=== PATIENT | female | born 1935 | race Caucasian/White ===

== ENCOUNTER 2016-10-10 16:17 | Inpatient (IN) | payer MEDICARE, OTHER ==
[2016-10-10] MEDS ORDERED: Sodium Chloride 0.9% 10 ML Syringe FLUSH PRN (16:55)
[2016-10-10] MEDS ORDERED: Dexamethasone 4 MG/ML SDV IVPUSH ONE (16:56)
[2016-10-10] MEDS ORDERED: Sodium Chloride 0.9% 1,000 ML IV ONE (16:57)
--- NOTE | 2016-10-10 18:37 | EDM.PDOC ---
Scribed by Angela Campuzano 10/10/16 [id number] for Inderjit Queen MD ED HPI GENERAL MEDICAL PROBLEM - General Chief Complaint: Abdominal Pain Stated Complaint: SICK/DIZZY/UNABLE TO EAT [phone] Time Seen by Provider: 10/10/16 16:42 Source of Information: Reports: Patient, RN, RN Notes Reviewed History Limitations: Reports: No Limitations - History of Present Illness INITIAL COMMENTS - FREE TEXT/NARRATIVE: Patient arrives by POV with complaint of "room spin and dizziness" with nausea x2 weeks. Patient states that is due to the nausea it would be better if she quit eating and now has generalized weakness. Admits to some recurrent frontal headaches. Denies fever, chills, nausea, vomiting, cough or palpitations. She saw Dr. Navarrete 2 days and had a head CT yesterday which had no acute changes. Location: Reports: Head Quality: Reports: Ache Severity: Severe Improves with: Reports: None Worsens with: Reports: None Associated Symptoms: Reports: No Other Symptoms - Related Data Allergies Allergy/AdvReac Type Severity Reaction Status Date / Time Penicillins Allergy Cannot Verified 05/19/15 11:49 Remember Home Meds: Home Meds Aspirin [Halfprin] 81 mg PO DAILY 05/19/15 [History] Celecoxib [Celecoxib] 200 mg PO DAILY 05/19/15 [History] Ezetimibe [Zetia] 10 mg PO DAILY 05/19/15 [History] Hydrochlorothiazide 25 mg PO DAILY 05/19/15 [History] Levothyroxine [Synthroid] 1 tab PO DAILY 05/19/15 [History] Memantine HCl [Namenda] 5 mg PO QAM 05/19/15 [History] Oxybutynin 5 mg PO DAILY 05/19/15 [History] Propranolol [Inderal LA] 60 mg PO BID 05/19/15 [History] Rosuvastatin [Crestor] 10 mg PO DAILY 05/19/15 [History] Clopidogrel [Plavix] 75 mg PO DAILY 10/10/16 [History] DULoxetine [Cymbalta] 30 mg PO DAILY 10/10/16 [History] Memantine HCl [Namenda] 10 mg PO BEDTIME 10/10/16 [History] Prednisone [IJD: predniSONE] 60 mg PO DAILY 10/10/16 [History] Past Medical History Cardiovascular History: Reports: CAD, High Cholesterol, Hypertension Genitourinary History: Reports: UTI, Recurrent Neurological History: Reports: TIA Social & Family History - Family History Family Medical History: Noncontributory - Tobacco Use Smoking Status *Q: Never Smoker Second Hand Smoke Exposure: No - Recreational Drug Use Recreational Drug Use: No ED ROS GENERAL - Review of Systems Review Of Systems: ROS reveals no pertinent complaints other than HPI. ED EXAM, GI/ABD - Physical Exam Exam: See Below Exam Limited By: No Limitations General Appearance: Alert, WD/WN, No Apparent Distress Eyes: Bilateral: EOMI, Nystagmus (bilateral lateral gaze nystagmus.) Ears: Normal External Exam, Normal Canal, Hearing Grossly Normal, Normal TMs Nose: Normal Inspection, Normal Mucosa, No Blood Throat/Mouth: Normal Lips, Normal Oropharynx (moist), Other (dry oral membranes) Head: Atraumatic, Normocephalic Neck: Normal Inspection, Supple, Non-Tender, Full Range of Motion Respiratory/Chest: No Respiratory Distress Cardiovascular: Normal Peripheral Pulses, Regular Rate, Rhythm, No Edema, No Gallop, No JVD, No Murmur, No Rub GI/Abdominal Exam: Normal Bowel Sounds, Soft, Non-Tender, No Organomegaly, No Distention, No Abnormal Bruit, Pelvis Stable (Female) Exam: Deferred Rectal (Female) Exam: Deferred Back Exam: Normal Inspection Extremities: Normal Inspection, Normal Range of Motion, Non-Tender, Normal Capillary Refill, No Pedal Edema Neurological: Alert, No Motor/Sensory Deficits Psychiatric: Normal Affect, Normal Mood Skin Exam: Warm, Dry, Intact, Normal Color, No Rash EKG INTERPRETATION EKG Date: 10/10/16 Time: 17:05 Rhythm: Other (sinus bradycardia) Rate (Beats/Min): 58 [place]: Normal P-Wave: Present QRS: Normal ST-T: Normal QT: Normal Course - Vital Signs Last Recorded V/S: Last Vital Signs Temp 36.1 C 10/10/16 16:34 Pulse 53 L 10/10/16 18:08 Resp 16 10/10/16 16:34 BP 100/80 10/10/16 18:08 Pulse Ox 99 10/10/16 18:08 Orthostatic Blood Pressure [ 81/52 Standing] Orthostatic Blood Pressure [ 103/49 Sitting] Orthostatic Blood Pressure [ 112/48 Supine] - Orders/Labs/Meds Orders: Active Orders 24 hr Category Date Time Status EKG 12 Lead [EKG Documentation Completion] [RC] STAT Care 10/10/16 16:55 Active Orthostatic Vital Signs [RC] ASDIRECTED Care 10/10/16 16:56 Active Peripheral IV Care [RC] . DIRECTED Care 10/10/16 16:56 Active DRUG SCREEN URINE BIORAD [URCHEM] Stat Lab 10/10/16 18:25 Ordered UA W/MICROSCOPIC [URIN] Stat Lab 10/10/16 18:25 Ordered Sodium Chloride 0.9% [Normal Saline] 1,000 ml Med 10/10/16 16:57 Active IV .BOLUS Sodium Chloride 0.9% [Saline Flush] Med 10/10/16 16:55 Active 10 ml FLUSH ASDIRECTED PRN Peripheral IV Insertion Adult [OM.PC] Stat Oth 10/10/16 16:55 Ordered Medication Orders Sodium Chloride (Normal Saline) 1,000 mls @ 250 mls/hr IV .BOLUS ONE Stop: 10/10/16 20:56 Last Admin: 10/10/16 17:14 Dose: 250 mls/hr Sodium Chloride (Saline Flush) 10 ml FLUSH ASDIRECTED PRN PRN Reason: Keep Vein Open Last Admin: 10/10/16 17:12 Dose: 10 ml Labs: Laboratory Tests 10/10/16 10/10/16 10/10/16 Range/Units 17:13 17:13 17:13 WBC 9.0 (5.0-10.0) 10^3/uL RBC 3.96 L (4.2-5.4) 10^6/uL Hgb 11.7 L (12.0-16.0) g/dL Hct 33.6 L (37.0-47.0) % MCV 84.8 (80-100) fL MCH 29.5 (27.0-34.0) pg MCHC 34.8 (33.0-35.0) g/dL Plt Count 242 (150-450) 10^3/uL Neut % (Auto) 91.4 H (42.2-75.2) % Lymph % (Auto) 6.3 L (20.5-50.1) % [place] % (Auto) 2.1 (2-8) % Eos % (Auto) 0.1 L (1.0-3.0) % Baso % (Auto) 0.1 (0.0-1.0) % Sodium 121 L (135-145) mmol/L Potassium 4.4 (3.6-5.0) mmol/L Chloride 87 L (101-111) mmol/L Carbon Dioxide 23.0 (21.0-31.0) mmol/L Anion Gap 15.4 BUN 20 H (7-18) mg/dL Creatinine 1.0 (0.6-1.3) mg/dL Est Cr Clr Drug Dosing 30.62 mL/min Estimated GFR (MDRD) 53 BUN/Creatinine Ratio 20.00 Glucose 152 H (74-105) mg/dL Calcium 9.2 (8.4-10.2) mg/dl Magnesium 1.8 (1.8-2.5) mg/dL Total Bilirubin 0.9 (0.2-1.0) mg/dL AST 23 (10-42) IU/L ALT 21 (10-60) IU/L Alkaline Phosphatase 76 (42-121) IU/L Total Protein 7.0 (6.7-8.2) g/dl Albumin 3.4 (3.2-5.5) g/dl Globulin 3.6 Albumin/Globulin Ratio 0.94 TSH, Ultra Sensitive 0.56 (0.35-7.0) uIu/mL Meds: Medications Generic Name Dose Route Start Last Admin Trade Name Freq PRN Reason Stop Dose Admin Sodium Chloride 1,000 mls @ 250 mls/hr 10/10/16 16:57 10/10/16 17:14 Normal Saline IV 10/10/16 20:56 250 mls/hr .BOLUS ONE Administration Sodium Chloride 10 ml 10/10/16 16:55 10/10/16 17:12 Saline Flush FLUSH 10 ml ASDIRECTED PRN Administration Keep Vein Open Discontinued Medications Generic Name Dose Route Start Last Admin Trade Name Freq PRN Reason Stop Dose Admin Dexamethasone 20 mg 10/10/16 16:56 10/10/16 17:14 Dexamethasone IVPUSH 10/10/16 16:57 20 mg ONETIME ONE Administration Diazepam 5 mg 10/10/16 16:56 10/10/16 17:14 Valium IVPUSH 10/10/16 16:57 5 mg ONETIME ONE Administration - Radiology Interpretation Free Text/Narrative:: Reviewed CT HEAD report from 10/09/16. Departure - Departure Time of Disposition: 18:07 (Admit Dr. Ramos/Cameron) Disposition: Refer to Observation Condition: Fair Clinical Impression: Vertigo, Hyponatremia, Dehydration, Orthostatic hypotension - Discharge Information Forms: ED Department Discharge - My Orders Last 24 Hours: My Active Orders 10/10/16 16:55 EKG 12 Lead [EKG Documentation Completion] [RC] STAT Sodium Chloride 0.9% [Saline Flush] 10 ml FLUSH ASDIRECTED PRN Peripheral IV Insertion Adult [OM.PC] Stat 10/10/16 16:56 Orthostatic Vital Signs [RC] ASDIRECTED Peripheral IV Care [RC] . DIRECTED 10/10/16 16:57 Sodium Chloride 0.9% [Normal Saline] 1,000 ml IV .BOLUS 10/10/16 18:25 DRUG SCREEN URINE BIORAD [URCHEM] Stat UA W/MICROSCOPIC [URIN] Stat - Assessment/Plan Last 24 Hours: My Active Orders 10/10/16 16:55 EKG 12 Lead [EKG Documentation Completion] [RC] STAT Sodium Chloride 0.9% [Saline Flush] 10 ml FLUSH ASDIRECTED PRN Peripheral IV Insertion Adult [OM.PC] Stat 10/10/16 16:56 Orthostatic Vital Signs [RC] ASDIRECTED Peripheral IV Care [RC] . DIRECTED 10/10/16 16:57 Sodium Chloride 0.9% [Normal Saline] 1,000 ml IV .BOLUS 10/10/16 18:25 DRUG SCREEN URINE BIORAD [URCHEM] Stat UA W/MICROSCOPIC [URIN] Stat I have read and agree with the documentation that has been completed regarding this visit. By signing this record, I attest that the documentation was completed in my physical presence and is an accurate record of the encounter.
--- NOTE | 2016-10-10 20:21 | PCM.HP ---
H&P History of Present Illness - General Date of Service: 10/10/16 Admit Problem/Dx: Patient arrives in ED complaint of "room spin and dizziness" with nausea x2 weeks. Source of Information: Patient, Family History Limitations: Reports: No Limitations - History of Present Illness Initial Comments - Free Text/Narative: This is a 81 Y/O F with past Medical history of Hypertension, Dyslipidemia, CVA , Arthritis , came to ED with complaint of "room spin and dizziness" with nausea x2 weeks. Patient states that is due to the nausea she stopped eating and now has generalized weakness. Admits to some recurrent frontal headaches. Denies fever, chills, nausea, vomiting, cough or palpitations. She saw Dr. Navarrete 2 days and had a head CT yesterday which had no acute changes and in ED she was orthostatic and also noted to have Hyponatremia ( serum sodium was 121 meq/L). She has received IV fluids and BP is better and Nausea is also much better. Pt has TMJ pain for the last 3-4 days and can not open her mouth and can not chew, eating oatmeal and also had no BM for the last 3 days. Onset of Symptoms: Reports: Gradual Duration of Symptoms: Reports: Day(s):, Getting Worse Location: Reports: Other (nausea and spinning of room) Improves with: Reports: Rest Worsens with: Reports: Eating Associated Symptoms: Reports: Nausea/Vomiting - Related Data Allergies/Adverse Reactions: Allergies Allergy/AdvReac Type Severity Reaction Status Date / Time Penicillins Allergy Cannot Verified 05/19/15 11:49 Remember Home Medications: Home Meds Aspirin [Halfprin] 81 mg PO DAILY 05/19/15 [History] Celecoxib [Celecoxib] 200 mg PO DAILY 05/19/15 [History] Ezetimibe [Zetia] 10 mg PO DAILY 05/19/15 [History] Hydrochlorothiazide 25 mg PO DAILY 05/19/15 [History] Levothyroxine [Synthroid] 1 tab PO DAILY 05/19/15 [History] Memantine HCl [Namenda] 5 mg PO QAM 05/19/15 [History] Oxybutynin 5 mg PO DAILY 05/19/15 [History] Propranolol [Inderal LA] 60 mg PO BID 05/19/15 [History] Rosuvastatin [Crestor] 10 mg PO DAILY 05/19/15 [History] Clopidogrel [Plavix] 75 mg PO DAILY 10/10/16 [History] DULoxetine [Cymbalta] 30 mg PO DAILY 10/10/16 [History] Memantine HCl [Namenda] 10 mg PO BEDTIME 10/10/16 [History] Prednisone [IJD: predniSONE] 60 mg PO DAILY 10/10/16 [History] Past Medical History HEENT History: Reports: Impaired Vision Cardiovascular History: Reports: CAD, High Cholesterol, Hypertension Genitourinary History: Reports: UTI, Recurrent Neurological History: Reports: TIA Psychiatric History: Reports: Dementia - Past Surgical History HEENT Surgical History: Reports: Cataract Surgery, Tonsillectomy Social & Family History - Family History Family Medical History: Noncontributory - Tobacco Use Smoking Status *Q: Never Smoker Second Hand Smoke Exposure: No - Caffeine Use Caffeine Use: Reports: None - Recreational Drug Use Recreational Drug Use: No H&P Review of Systems - Review of Systems: Review Of Systems: See Below General: Reports: Weakness. Denies: Fever, Chills, Night Sweats, Diaphoresis, Weight Loss HEENT: Reports: Headaches, Vertigo. Denies: Dysphasia, Sinus Congestion, Sore Throat, Visual Changes Pulmonary: Denies: Shortness of Breath, Wheezing, Cough, Sputum, Hemoptysis Cardiovascular: Denies: Chest Pain, Dyspnea on Exertion, Edema, Lightheadedness Gastrointestinal: Reports: Nausea, Vomiting. Denies: Abdominal Pain, Diarrhea, Difficulty Swallowing Genitourinary: Denies: Dysuria, Frequency, Burning, Retention, Flank Pain Musculoskeletal: Reports: Other (B/L Jaw pain). Denies: Shoulder Pain, Leg Pain , Foot Pain, Joint Swelling, Muscle Pain Skin: Denies: Cyanosis, Jaundice, Diaphoresis, Pruritis, Erythema Psychiatric: Denies: Confusion, Agitation, Hallucinations, Suicidal Ideation Neurological: Reports: Dizziness, Headache, Weakness, Gait Disturbance Exam - Exam Exam: See Below - Vital Signs Vital Signs: Last Vital Signs Temp 36.1 C 10/10/16 16:34 Pulse 54 L 10/10/16 19:13 Resp 18 10/10/16 19:13 BP 93/49 L 10/10/16 19:13 Pulse Ox 99 10/10/16 19:13 Weight: 63.503 kg - Exam Quality Assessment: DVT Prophylaxis. No: Supplemental Oxygen, Urinary Catheter General: Alert, Oriented, Cooperative HEENT: Conjunctiva Clear, Hearing Intact, Mucosa Moist & [place], Pupils Equal, Pupils Reactive Neck: Supple, Full Range of Motion. No: Lymphadenopathy, Thyromegaly Lungs: Clear to Auscultation, Normal Respiratory Effort. No: Crackles, Rhonchi , Wheezing Cardiovascular: Regular Rate, Regular Rhythm, Normal S1, Normal S2, Systolic Murmur GI/Abdominal Exam: Normal Bowel Sounds, Soft, Non-Tender, No Organomegaly, No Distention (Female) Exam: Deferred Rectal (Female) Exam: Deferred Back Exam: Normal Inspection, Full Range of Motion Extremities: Normal Inspection. No: Joint Swelling Skin: Warm, Dry, Intact Neurological: Cranial Nerves Intact, Reflexes Equal Bilateral Neuro Extensive - Mental Status: Alert, Oriented x3, Normal Mood/Affect, Normal Cognition, Memory Intact Neuro Extensive - Motor, Sensory, Reflexes: Normal Gait, Normal Reflexes Psychiatric: Alert, Normal Affect, Normal Mood - Patient Data Result Diagrams: 10/10/16 17:13 10/11/16 06:00 *Q Meaningful Use (ADM) - VTE *Q VTE Criteria *Q: - Stroke *Q Stroke Criteria *Q: - AMI *Q AMI Criteria *Q: - Problem List (1) Temporomandibular joint (TMJ) pain SNOMED Code(s): 10870589, 059695488 ICD Code: M26.629 - ARTHRALGIA OF TEMPOROMANDIBULAR JOINT, UNSPECIFIED SIDE Status: Acute Current Visit: Yes (2) Dehydration SNOMED Code(s): 97232513 ICD Code: E86.0 - DEHYDRATION Status: Acute Current Visit: Yes (3) Orthostatic hypotension SNOMED Code(s): 37159460 ICD Code: I95.1 - ORTHOSTATIC HYPOTENSION Status: Acute Current Visit: Yes (4) Vertigo SNOMED Code(s): 730170767 ICD Code: R42 - DIZZINESS AND GIDDINESS Status: Acute Current Visit: Yes Problem List Initiated/Reviewed/Updated: Yes Orders Last 24hrs: Medication Orders Sodium Chloride (Normal Saline) 1,000 mls @ 250 mls/hr IV .BOLUS ONE Stop: 10/10/16 20:56 Last Admin: 10/10/16 17:14 Dose: 250 mls/hr Sodium Chloride (Saline Flush) 10 ml FLUSH ASDIRECTED PRN PRN Reason: Keep Vein Open Last Admin: 10/10/16 17:12 Dose: 10 ml Assessment/Plan Comment:: This is a 81 Y/O F came with Nausea, spinning of rooms , B/L Jaw pain and poor appetite also noted to have low sodium 1. Nausea : The etiology not clear but may be from Jaw pain -Will start her on IV fluids ( NS) at 100 ml/hr Start her on IV Zofran 4 mg q 6 hrs PRN 2. Orthostatic Hypotension: This is likely from Dehydration -Will continue IV fluids, hold all Anti-HTN medication -Encourage oral Intake 3. Vertigo: Pt had Head CT and no significant finding, will start her on Scheduled Meclizine 12.5 mg BID 4. B/L TMJ pain: It's new for the last 3-4 days -Will start her Percocet 5/325 q4-6 hrs Prn -Will continue Prednisone 60 mg daily -Need more Nerological evaluation and Need to see a Neurologist if the pain is due to Trigeminal Neuralgia 5. Hyponatremia: This is likely from Nausea, causing abnormal ADH release and free water uptake by Kidney -Will check urine and serum osmolality, Urine sodium and uric acid -Will continue NS at 100 ml/hr -She has acute symptom of Hyponatremia and will not need 3% saline infusion or oral salt tablet 6. GI prophylaxis: Protonix 7. DVT prophylaxis: Heparin and sequential Axel 8. Code Status: Full Code
[2016-10-10] MEDS ORDERED: Acetaminophen 325 MG Tab PO PRN (21:14)
[2016-10-10] MEDS ORDERED: Docusate Sodium 100 MG Cap PO PRN (21:14)
[2016-10-10] MEDS ORDERED: Acetaminophen/oxyCODONE 325-5 MG Tab PO PRN (21:28)
[2016-10-10] MEDS: Heparin Sodium 5,000 Units/ML Vial SUBCUT SCH (22:26)
[2016-10-10] MEDS: Sodium Chloride 0.9% 1,000 ML IV SCH (22:27)
[2016-10-10] MEDS ORDERED: Ondansetron 4 MG/2 ML SDV IV PRN (23:21)
[2016-10-11] MEDS: Rosuvastatin 10 MG Tab PO SCH ×2 (05:03→21:04)
[2016-10-11] MEDS: Heparin Sodium 5,000 Units/ML Vial SUBCUT SCH ×3 (06:25→21:05)
[2016-10-11 06:29] LABS: CHLORIDE,CL 93 mmol/L (101-111); SODIUM,NA 123 mmol/L (135-145)
[2016-10-11] MEDS: Sodium Chloride 0.9% 1,000 ML IV SCH ×2 (08:34→19:01)
[2016-10-11] MEDS: DULoxetine 30 MG Cap PO SCH (08:41)
[2016-10-11] MEDS: Meclizine 12.5 MG Tab PO SCH ×2 (08:41→21:04)
[2016-10-11] MEDS: Memantine 10 MG Tab PO SCH ×2 (08:42→21:04)
[2016-10-11] MEDS: Aspirin 81 MG Tab.EC PO SCH (08:42)
[2016-10-11] MEDS: predniSONE 20 MG Tab PO SCH (08:43)
[2016-10-11] MEDS: Clopidogrel 75 MG Tab PO SCH (08:43)
[2016-10-11] MEDS: Oxybutynin 5 MG Tab PO SCH (08:43)
[2016-10-11] MEDS: Ezetimibe 10 MG Tab PO SCH (08:44)
[2016-10-11] MEDS: Levothyroxine 50 MCG Tab PO SCH (08:44)
[2016-10-11] MEDS ORDERED: Rosuvastatin 10 MG Tab PO SCH (09:00)
--- NOTE | 2016-10-11 12:48 | PCM.PN ---
- General Info Date of Service: 10/11/16 Admission Dx/Problem (Free Text): Patient arrives in ED complaint of "room spin and dizziness" with nausea x2 weeks. she was admitted for Vertigo, and orthostatic Hypotension Subjective Update: Pt feels little better today, still has very significant dizziness and can not eat any solid food, gets B/L Jaw pain with chewing. Bubba is not improving with steroid and also Percocet. she has no pain in jaw if she does not chew, has no nausea and tolerating liquid diet, she had no BM for 3-4 days but passing gas. Functional Status: Reports: Pain Controlled, Tolerating Diet, Ambulating (onle from bed to rest room with assistance) - Review of Systems General: Reports: Weakness, Fatigue, Appetite (good but can not chew any food). Denies: Fever, Chills HEENT: Reports: Other (has B/L Jaw pain). Denies: Sinus Congestion, Sore Throat , Visual Changes Pulmonary: Denies: Shortness of Breath, Pleuritic Chest Pain, Cough, Sputum, Wheezing Cardiovascular: Reports: Lightheadedness. Denies: Chest Pain, Dyspnea on Exertion Gastrointestinal: Reports: Constipation, Flatus, Nausea. Denies: Abdominal Pain , Vomiting Genitourinary: Denies: Dysuria, Burning, Urgency, Flank Pain Musculoskeletal: Reports: Other (has B/L Jaw Pain). Denies: Neck Pain, Hand Pain, Joint Swelling Skin: Denies: Cyanosis, Jaundice, Bruising, Pruritis, Rash Neurological: Reports: Dizziness, Weakness, Gait Disturbance. Denies: Confusion Psychiatric: Denies: Confusion, Anxiety - Patient Data Vitals - Most Recent: Last Vital Signs Temp 36.6 C 10/11/16 11:11 Pulse 54 L 10/11/16 11:11 Resp 20 10/11/16 11:11 BP 104/53 L 10/11/16 07:00 Pulse Ox 96 10/11/16 11:11 Orthostatic Blood Pressure [ 116/51 Standing] Orthostatic Blood Pressure [ 105/51 Sitting] Orthostatic Blood Pressure [ 106/56 Supine] Weight - Most Recent: 63.503 kg I&O - Last 24 Hours: Intake & Output 10/10/16 10/11/16 10/11/16 22:59 06:59 14:59 Intake Total 100 800 201 Output Total 300 650 400 Balance -200 150 -199 Lab Results Last 24 Hours: Laboratory Results - last 24 hr 10/11/16 Range/Units 06:00 Sodium 123 L (135-145) mmol/L Potassium 4.2 (3.6-5.0) mmol/L Chloride 93 L (101-111) mmol/L Carbon Dioxide 22.0 (21.0-31.0) mmol/L Anion Gap 12.2 BUN 15 (7-18) mg/dL Creatinine 0.7 (0.6-1.3) mg/dL Est Cr Clr Drug Dosing 43.74 mL/min Estimated GFR (MDRD) > 60 Glucose 127 H (74-105) mg/dL Calcium 8.4 (8.4-10.2) mg/dl Med Orders - Current: Current Medications Acetaminophen (Tylenol) 650 mg PO Q4H PRN PRN Reason: Pain (mild 1-3 )/fever Aspirin (Halfprin) 81 mg PO DAILY [facility] Last Admin: 10/11/16 08:42 Dose: 81 mg Clopidogrel Bisulfate (Plavix) 75 mg PO DAILY [facility] Last Admin: 10/11/16 08:43 Dose: 75 mg Docusate Sodium (Colace) 100 mg PO DAILY PRN PRN Reason: Constipation Last Admin: 10/10/16 22:26 Dose: 100 mg Duloxetine HCl (Cymbalta) 30 mg PO DAILY [facility] Last Admin: 10/11/16 08:41 Dose: 30 mg Ezetimibe (Zetia) 10 mg PO DAILY [facility] Last Admin: 10/11/16 08:44 Dose: 10 mg Heparin Sodium (Porcine) (Heparin Sodium) 5,000 units SUBCUT Q8H [facility] Last Admin: 10/11/16 06:25 Dose: 5,000 units Sodium Chloride (Normal Saline) 1,000 mls @ 100 mls/hr IV ASDIRECTED [facility] Last Admin: 10/11/16 08:34 Dose: 100 mls/hr Levothyroxine Sodium (Synthroid) 50 mcg PO DAILY [facility] Last Admin: 10/11/16 08:44 Dose: 50 mcg Meclizine HCl (Antivert) 12.5 mg PO BID [facility] Last Admin: 10/11/16 08:41 Dose: 12.5 mg Memantine (Namenda) 5 mg PO QAM [facility] Last Admin: 10/11/16 08:42 Dose: 5 mg Memantine (Namenda) 10 mg PO BEDTIME [facility] Ondansetron HCl (Zofran) 4 mg IV Q6HR PRN PRN Reason: Nausea Oxybutynin Chloride (Oxybutynin) 5 mg PO DAILY [facility] Last Admin: 10/11/16 08:43 Dose: 5 mg Oxycodone/Acetaminophen (Percocet 325-5 Mg) 1 tab PO Q6H PRN PRN Reason: Pain Prednisone (Prednisone) 60 mg PO DAILY [facility] Last Admin: 10/11/16 08:43 Dose: 60 mg Rosuvastatin Calcium (Crestor) 10 mg PO BEDTIME [facility] Last Admin: 10/11/16 05:03 Dose: Not Given Sodium Chloride (Saline Flush) 10 ml FLUSH ASDIRECTED PRN PRN Reason: Keep Vein Open Last Admin: 10/10/16 17:12 Dose: 10 ml Discontinued Medications Dexamethasone (Dexamethasone) 20 mg IVPUSH ONETIME ONE Stop: 10/10/16 16:57 Last Admin: 10/10/16 17:14 Dose: 20 mg Diazepam (Valium) 5 mg IVPUSH ONETIME ONE Stop: 10/10/16 16:57 Last Admin: 10/10/16 17:14 Dose: 5 mg Sodium Chloride (Normal Saline) 1,000 mls @ 250 mls/hr IV .BOLUS ONE Stop: 10/10/16 20:56 Last Admin: 10/10/16 17:14 Dose: 250 mls/hr Rosuvastatin Calcium (Crestor) 10 mg PO DAILY [facility] - Exam Quality Assessment: DVT Prophylaxis. No: Supplemental Oxygen, Urine Catheter General: Alert, Oriented, Cooperative, No Acute Distress HEENT: Pupils Equal, Pupils Reactive, EOMI, Mucous Membr. Moist/[place] Neck: Supple. No: Lymphadenopathy, JVD Lungs: Clear to Auscultation, Normal Respiratory Effort. No: Crackles, Wheezing Cardiovascular: Regular Rate, Regular Rhythm, Murmurs GI/Abdominal Exam: Normal Bowel Sounds, Soft, Non-Tender, No Organomegaly, No Distention, No Mass. No: Guarding, Rebound (Female) Exam: Deferred Back Exam: Normal Inspection, Full Range of Motion Extremities: Normal Inspection, Normal Range of Motion, Non-Tender, No Pedal Edema Skin: Warm, Dry, Intact Neurological: No New Focal Deficit Psy/Mental Status: Alert, Normal Affect, Normal Mood - Problem List & Annotations (1) Temporomandibular joint (TMJ) pain SNOMED Code(s): 33805173, 091321488 Code(s): M26.629 - ARTHRALGIA OF TEMPOROMANDIBULAR JOINT, UNSPECIFIED SIDE Status: Acute Current Visit: Yes (2) Dehydration SNOMED Code(s): 19606332 Code(s): E86.0 - DEHYDRATION Status: Acute Current Visit: Yes (3) Orthostatic hypotension SNOMED Code(s): 59178219 Code(s): I95.1 - ORTHOSTATIC HYPOTENSION Status: Acute Current Visit: Yes (4) Vertigo SNOMED Code(s): 577444837 Code(s): R42 - DIZZINESS AND GIDDINESS Status: Acute Current Visit: Yes - Problem List Review Problem List Initiated/Reviewed/Updated: Yes - My Orders Last 24 Hours: My Active Orders 10/10/16 21:09 Patient Status [ADT] Routine Vital Signs [RC] 23,03,07,11,15,19 10/10/16 21:14 Ambulate [RC] ASDIRECTED Pulse Oximetry [RC] PRN Up With Assistance [RC] ASDIRECTED Up to Chair [RC] ASDIRECTED Acetaminophen [Tylenol] 650 mg PO Q4H PRN Docusate Sodium [Colace] 100 mg PO DAILY PRN DVT/VTE Prophylaxis Reflex [OM.PC] Routine Resuscitation Status Routine 10/10/16 21:15 Antiembolic Devices [RC] .Routine Oxygen Therapy [RC] PRN VTE/DVT Education [RC] PER UNIT ROUTINE Heparin Sodium 5,000 units SUBCUT Q8H 10/10/16 21:28 Acetaminophen/oxyCODONE [Percocet 325-5 MG] 1 tab PO Q6H PRN 10/10/16 21:30 Sodium Chloride 0.9% [Normal Saline] 1,000 ml IV ASDIRECTED 10/10/16 23:00 Rosuvastatin [Crestor] 10 mg PO BEDTIME 10/10/16 23:21 Ondansetron [Zofran] 4 mg IV Q6HR PRN 10/10/16 Dinner Clear Liquid Diet [DIET] 10/11/16 09:00 Aspirin [Halfprin] 81 mg PO DAILY Clopidogrel [Plavix] 75 mg PO DAILY DULoxetine [Cymbalta] 30 mg PO DAILY Ezetimibe [Zetia] 10 mg PO DAILY Levothyroxine [Synthroid] 50 mcg PO DAILY Meclizine [Antivert] 12.5 mg PO BID Memantine [Namenda] 5 mg PO QAM Oxybutynin 5 mg PO DAILY predniSONE 60 mg PO DAILY 10/11/16 21:00 Memantine [Namenda] 10 mg PO BEDTIME - Plan Plan:: This is a 81 Y/O F came with Nausea, spinning of rooms , B/L Jaw pain and poor appetite also noted to have low sodium 1. Nausea : The etiology not clear but may be from Jaw pain -Will continue her on IV fluids ( NS) at 100 ml/hr -Continue on IV Zofran 4 mg q 6 hrs PRN 2. Orthostatic Hypotension: This is likely from Dehydration -Will continue IV fluids, hold all Anti-HTN medication -Encourage oral Intake -It's now Improved -Will start Midodrine 2.5 mg BID 3. Vertigo: Pt had Head CT and no significant finding, will continue her on Scheduled Meclizine 12.5 mg BID 4. B/L TMJ pain: It's new for the last 3-4 days -Will continue her Percocet on 5/325 q4-6 hrs Prn -Will continue Prednisone 60 mg daily -Need Nerological evaluation and Need to see a Neurologist if the pain is due to Trigeminal Neuralgia -Will control nausea and also dizziness and once improved can go home but need evaluation by Neurologist 5. Hyponatremia: This is likely from Nausea, and Pain causing abnormal ADH release and free water uptake by Kidney -Will check urine and serum osmolality, Urine sodium and uric acid -Will continue NS at 100 ml/hr and sodium is improving slowly -She has acute symptom of Hyponatremia and will not need 3% saline infusion or oral salt tablet 6. Nutrition: Pt has poor oral intake of solid food, will continue clear liquid and add ensure daily with meal 6. GI prophylaxis: Protonix 7. DVT prophylaxis: Heparin and sequential Axel 8. Code Status: Full Code
[2016-10-11] MEDS: Midodrine 2.5 MG Tab PO SCH (17:24)
[2016-10-12] MEDS: Sodium Chloride 0.9% 1,000 ML IV SCH ×2 (04:54→15:03)
[2016-10-12] MEDS: Heparin Sodium 5,000 Units/ML Vial SUBCUT SCH ×3 (04:59→21:07)
[2016-10-12 06:31] LABS: CHLORIDE,CL 100 mmol/L (101-111); SODIUM,NA 131 mmol/L (135-145)
[2016-10-12] MEDS: Midodrine 2.5 MG Tab PO SCH ×2 (08:48→17:16)
[2016-10-12] MEDS: Meclizine 12.5 MG Tab PO SCH ×2 (08:48→21:06)
[2016-10-12] MEDS: DULoxetine 30 MG Cap PO SCH (08:49)
[2016-10-12] MEDS: Aspirin 81 MG Tab.EC PO SCH (08:49)
[2016-10-12] MEDS: Memantine 10 MG Tab PO SCH ×2 (08:49→21:06)
[2016-10-12] MEDS: Clopidogrel 75 MG Tab PO SCH (08:50)
[2016-10-12] MEDS: Oxybutynin 5 MG Tab PO SCH (08:50)
[2016-10-12] MEDS: Ezetimibe 10 MG Tab PO SCH (08:51)
[2016-10-12] MEDS: predniSONE 20 MG Tab PO SCH (08:51)
[2016-10-12] MEDS: Levothyroxine 50 MCG Tab PO SCH (08:51)
--- NOTE | 2016-10-12 12:06 | PCM.PN ---
- General Info Date of Service: 10/12/16 Admission Dx/Problem (Free Text): Patient came to ED with complaint of "room spin and dizziness" with nausea x2 weeks. she is admitted for Vertigo, and orthostatic Hypotension Subjective Update: Pt feels little better today, still has dizziness but better and can not eat any solid food, gets B/L Jaw pain with chewing. Pain is better with steroid and Percocet. she has no pain in jaw if she does not chew, has no nausea and tolerating liquid diet, advanced diet to mechanical soft , she little BM and she is on stool softner Functional Status: Reports: Tolerating Diet, Urinating, Other (will help her to walk in the hallway ) - Review of Systems General: Reports: Weakness, Appetite (Good ( advance to mechanical soft)). Denies: Fever, Chills HEENT: Denies: Eye Pain, Headaches, Post Nasal Drip, Sinus Congestion, Sore Throat Pulmonary: Denies: Shortness of Breath, Cough, Sputum, Wheezing Cardiovascular: Reports: Lightheadedness (with upright position). Denies: Chest Pain, Dyspnea on Exertion Gastrointestinal: Denies: Abdominal Pain, Diarrhea, Melena, Nausea, Vomiting Genitourinary: Denies: Dysuria, Frequency, Burning, Urgency, Flank Pain Musculoskeletal: Denies: Shoulder Pain, Back Pain, Leg Pain, Joint Swelling Skin: Denies: Cyanosis, Bruising, Pruritis, Rash Neurological: Reports: Dizziness, Weakness, Gait Disturbance Psychiatric: Denies: Confusion, Anxiety - Patient Data Vitals - Most Recent: Last Vital Signs Temp 36.6 C 10/12/16 11:00 Pulse 57 L 10/12/16 11:00 Resp 20 10/12/16 11:00 BP 102/48 L 10/12/16 11:00 Pulse Ox 98 10/12/16 11:00 Orthostatic Blood Pressure [ 116/48 Standing] Orthostatic Blood Pressure [ 106/48 Sitting] Orthostatic Blood Pressure [ 104/41 Supine] Weight - Most Recent: 63.503 kg I&O - Last 24 Hours: Intake & Output 10/11/16 10/12/16 10/12/16 22:59 06:59 14:59 Intake Total 1722 747 560 Output Total 700 700 400 Balance 1022 47 160 Lab Results Last 24 Hours: Laboratory Results - last 24 hr 10/12/16 Range/Units 05:25 Sodium 131 L (135-145) mmol/L Potassium 3.6 (3.6-5.0) mmol/L Chloride 100 L (101-111) mmol/L Carbon Dioxide 24.0 (21.0-31.0) mmol/L Anion Gap 10.6 BUN 9 (7-18) mg/dL Creatinine 0.7 (0.6-1.3) mg/dL Est Cr Clr Drug Dosing 43.74 mL/min Estimated GFR (MDRD) > 60 Glucose 86 (74-105) mg/dL Calcium 8.3 L (8.4-10.2) mg/dl Med Orders - Current: Current Medications Acetaminophen (Tylenol) 650 mg PO Q4H PRN PRN Reason: Pain (mild 1-3 )/fever Aspirin (Halfprin) 81 mg PO DAILY [facility] Last Admin: 10/12/16 08:49 Dose: 81 mg Clopidogrel Bisulfate (Plavix) 75 mg PO DAILY [facility] Last Admin: 10/12/16 08:50 Dose: 75 mg Docusate Sodium (Colace) 100 mg PO DAILY PRN PRN Reason: Constipation Last Admin: 10/10/16 22:26 Dose: 100 mg Duloxetine HCl (Cymbalta) 30 mg PO DAILY [facility] Last Admin: 10/12/16 08:49 Dose: 30 mg Ezetimibe (Zetia) 10 mg PO DAILY [facility] Last Admin: 10/12/16 08:51 Dose: 10 mg Heparin Sodium (Porcine) (Heparin Sodium) 5,000 units SUBCUT Q8H [facility] Last Admin: 10/12/16 04:59 Dose: 5,000 units Sodium Chloride (Normal Saline) 1,000 mls @ 100 mls/hr IV ASDIRECTED [facility] Last Admin: 10/12/16 04:54 Dose: 100 mls/hr Levothyroxine Sodium (Synthroid) 50 mcg PO DAILY [facility] Last Admin: 10/12/16 08:51 Dose: 50 mcg Meclizine HCl (Antivert) 12.5 mg PO BID [facility] Last Admin: 10/12/16 08:48 Dose: 12.5 mg Memantine (Namenda) 5 mg PO QAM [facility] Last Admin: 10/12/16 08:49 Dose: 5 mg Memantine (Namenda) 10 mg PO BEDTIME [facility] Last Admin: 10/11/16 21:04 Dose: 10 mg Midodrine (Midodrine) 2.5 mg PO BID@0800,1700 [facility] Last Admin: 10/12/16 08:48 Dose: 2.5 mg Ondansetron HCl (Zofran) 4 mg IV Q6HR PRN PRN Reason: Nausea Oxybutynin Chloride (Oxybutynin) 5 mg PO DAILY [facility] Last Admin: 10/12/16 08:50 Dose: 5 mg Oxycodone/Acetaminophen (Percocet 325-5 Mg) 1 tab PO Q6H PRN PRN Reason: Pain Prednisone (Prednisone) 60 mg PO DAILY [facility] Last Admin: 10/12/16 08:51 Dose: 60 mg Rosuvastatin Calcium (Crestor) 10 mg PO BEDTIME [facility] Last Admin: 10/11/16 21:04 Dose: 10 mg Sodium Chloride (Saline Flush) 10 ml FLUSH ASDIRECTED PRN PRN Reason: Keep Vein Open Last Admin: 10/10/16 17:12 Dose: 10 ml Discontinued Medications Dexamethasone (Dexamethasone) 20 mg IVPUSH ONETIME ONE Stop: 10/10/16 16:57 Last Admin: 10/10/16 17:14 Dose: 20 mg Diazepam (Valium) 5 mg IVPUSH ONETIME ONE Stop: 10/10/16 16:57 Last Admin: 10/10/16 17:14 Dose: 5 mg Sodium Chloride (Normal Saline) 1,000 mls @ 250 mls/hr IV .BOLUS ONE Stop: 10/10/16 20:56 Last Admin: 10/10/16 17:14 Dose: 250 mls/hr Rosuvastatin Calcium (Crestor) 10 mg PO DAILY [facility] Senna/Docusate Sodium (Senna Plus) 1 tab PO ONETIME ONE Stop: 10/11/16 12:48 Last Admin: 10/11/16 13:02 Dose: 1 tab - Exam Quality Assessment: DVT Prophylaxis. No: Supplemental Oxygen General: Alert, Oriented, Cooperative, No Acute Distress HEENT: Pupils Equal, EOMI, Mucous Membr. Moist/[place] Neck: Supple. No: No Thyromegaly, Lymphadenopathy Lungs: Clear to Auscultation, Normal Respiratory Effort. No: Crackles, Wheezing Cardiovascular: Regular Rate, Regular Rhythm, Murmurs GI/Abdominal Exam: Normal Bowel Sounds, Non-Tender, No Distention, Rigid. No: Guarding, Rebound (Female) Exam: Deferred Back Exam: Normal Inspection Extremities: Normal Inspection, Normal Range of Motion, No Pedal Edema Skin: Warm, Dry, Intact Neurological: No New Focal Deficit, Other (has B/L Jaw pain and can not open her mouth wide) Psy/Mental Status: Alert, Normal Affect, Normal Mood - Problem List & Annotations (1) Temporomandibular joint (TMJ) pain SNOMED Code(s): 46976642, 691072901 Code(s): M26.629 - ARTHRALGIA OF TEMPOROMANDIBULAR JOINT, UNSPECIFIED SIDE Status: Acute Current Visit: Yes (2) Dehydration SNOMED Code(s): 19417009 Code(s): E86.0 - DEHYDRATION Status: Acute Current Visit: Yes (3) Orthostatic hypotension SNOMED Code(s): 78734525 Code(s): I95.1 - ORTHOSTATIC HYPOTENSION Status: Acute Current Visit: Yes (4) Vertigo SNOMED Code(s): 173970331 Code(s): R42 - DIZZINESS AND GIDDINESS Status: Acute Current Visit: Yes (5) Weakness generalized SNOMED Code(s): 62211134 Code(s): R53.1 - WEAKNESS Status: Acute Current Visit: Yes - Problem List Review Problem List Initiated/Reviewed/Updated: Yes - My Orders Last 24 Hours: My Active Orders 10/11/16 12:48 Supplement (Dietary) [Dietary Supplements] [RC] DAILY 10/11/16 14:09 Orthostatic Vital Signs [RC] Q12HR 10/11/16 17:00 Midodrine 2.5 mg PO BID@0800,1700 10/11/16 21:00 Memantine [Namenda] 10 mg PO BEDTIME 10/12/16 Lunch Mechanical Soft Diet [DIET] - Plan Plan:: This is a 81 Y/O F came with Nausea, spinning of rooms , B/L Jaw pain and poor appetite also noted to have low sodium 1. Nausea : The etiology not clear but may be from Jaw pain -Will stop IV fluids ( NS) , she is now tolerating Mechanical soft diet -Continue on IV Zofran 4 mg q 6 hrs PRN 2. Orthostatic Hypotension: This is likely from Dehydration -Will continue IV fluids, hold all Anti-HTN medication -Encourage oral Intake -It's now Improved -Will continue Midodrine 2.5 mg BID 3. Vertigo: Pt had Head CT and no significant finding, will continue her on Meclizine 12.5 mg BID 4. B/L TMJ pain: It's new for the last 3-4 days -Will continue her Percocet on 5/325 q4-6 hrs Prn -Will continue Prednisone 60 mg daily -Need Nerological evaluation and Need to see a Neurologist if the pain is due to Trigeminal Neuralgia -Will control nausea and also dizziness and once improved can go home but need evaluation by Neurologist 5. Hyponatremia: This is likely from Nausea, and Pain causing abnormal ADH release and free water uptake by Kidney -Will continue NS at 100 ml/hr and sodium is improving slowly -She has no acute symptom of Hyponatremia and will not need 3% saline infusion or oral salt tablet 6. Nutrition: Pt has poor oral intake of solid food, will start her on mechanical soft diet and continue ensure daily with meal 7. Weakness: pt is feeling too weak and need evalution before discharge to home. -I have placed the consult to PT/OT for evaluation before discharge 8. GI prophylaxis: Protonix 9. DVT prophylaxis: Heparin and sequential Axel 10. Code Status: Full Code
[2016-10-12] MEDS: Rosuvastatin 10 MG Tab PO SCH (21:06)
[2016-10-13] MEDS: Heparin Sodium 5,000 Units/ML Vial SUBCUT SCH ×3 (05:12→20:54)
[2016-10-13 06:57] LABS: CHLORIDE,CL 102 mmol/L (101-111); SODIUM,NA 134 mmol/L (135-145)
[2016-10-13] MEDS: DULoxetine 30 MG Cap PO SCH (09:16)
[2016-10-13] MEDS: Oxybutynin 5 MG Tab PO SCH (09:16)
[2016-10-13] MEDS: Midodrine 2.5 MG Tab PO SCH ×2 (09:16→17:57)
[2016-10-13] MEDS: predniSONE 20 MG Tab PO SCH (09:16)
[2016-10-13] MEDS: Clopidogrel 75 MG Tab PO SCH (09:17)
[2016-10-13] MEDS: Ezetimibe 10 MG Tab PO SCH (09:17)
[2016-10-13] MEDS: Memantine 10 MG Tab PO SCH ×2 (09:17→20:54)
[2016-10-13] MEDS: Levothyroxine 50 MCG Tab PO SCH (09:17)
[2016-10-13] MEDS: Meclizine 12.5 MG Tab PO SCH ×2 (09:18→20:54)
[2016-10-13] MEDS: Aspirin 81 MG Tab.EC PO SCH (09:18)
[2016-10-13] MEDS: Rosuvastatin 10 MG Tab PO SCH (20:54)
[2016-10-14] MEDS: Heparin Sodium 5,000 Units/ML Vial SUBCUT SCH (05:39)
--- NOTE | 2016-10-14 05:42 | EKG ---
10/10/2016 - UCHE KOENIG - This 12-lead EKG shows sinus bradycardia with a ventricular rate of 58. Normal axis and intervals. No acute ST-segment T-wave changes. There is baseline artifact in the limb leads. [facility] /[id number]
--- NOTE | 2016-10-14 08:21 | PN ---
DATE: 10/13/2016 SUBJECTIVE: Ms. العراقي is an 81-year-old lady, who was admitted late last week with the complaint of dizziness and nausea for 2 weeks. Complaining also of generalized weakness. She had not been able to eat. Apparently, this all goes back to some issues that she has been having, possibly related to bilateral TMJ joints. She had seen Dr. Navarrete, who started her on high-dose steroids. She was having more and more trouble getting the jaw open. She had not been eating and drinking and when she arrived in the Emergency Department, she was found to be hypotensive and orthostatic. Sodium was low at 121. She appears to have done well over the weekend. A review of her clinical data shows that she actually has been tolerating her diet and at times has eaten almost all of her meals. I questioned her further about whether she had been referred to anyone for this bilateral TMJ pain, she has not seen ENT nor has she discussed it with her dentist. We are going to follow up on this tomorrow. On exam, she is seated comfortably in her recliner. She voices no new concerns or complaints. She does state that she is feeling better. Her was present in the room. She voiced interest in possibly going to swing bed to work with physical and occupational therapy as she feels rather unsteady and weak. We will take this up with the swing bed coordinator tomorrow. Repeat lab work this morning included a basic panel. Sodium is now 134, potassium 3.7, and renal function is preserved. Blood sugars have been unremarkable. OBJECTIVE: Vital Signs: On exam, orthostatic blood pressures have been taken and were relatively stable in the range of 130/60, heart rate did not increase with change of position. Later in the day, blood pressures are 112/53 and 116/64. Oxygen saturation is high 90s on room air and she is afebrile. HEENT: Unremarkable. She actually was speaking quite well, moving her jaw, opening her mouth. She was not in any distress nor was her speech limited by limited movement of the jaw. Chest: Showed clear bilateral breath sounds. Heart: Showed regular rate and rhythm. Abdomen: Benign. Extremities: The calves were soft and nontender. ASSESSMENT AND PLAN: We will continue the present management. She currently is on meclizine for the dizziness as well as midodrine for blood pressure support. She is on 60 mg daily of prednisone. We will speak to Physical and Occupational Therapy in the morning. They did do an evaluation on her following admission and we will see if they think that she possibly could benefit from admission to swing bed. No other changes are made in her care today. [facility] /[id number] MTDD
[2016-10-14] MEDS: Clopidogrel 75 MG Tab PO SCH (09:30)
[2016-10-14] MEDS: DULoxetine 30 MG Cap PO SCH (09:31)
[2016-10-14] MEDS: Midodrine 2.5 MG Tab PO SCH ×2 (09:31→17:50)
[2016-10-14] MEDS: Oxybutynin 5 MG Tab PO SCH (09:31)
[2016-10-14] MEDS: Meclizine 12.5 MG Tab PO SCH (09:31)
[2016-10-14] MEDS: Levothyroxine 50 MCG Tab PO SCH (09:31)
[2016-10-14] MEDS: Ezetimibe 10 MG Tab PO SCH (09:31)
[2016-10-14] MEDS: predniSONE 20 MG Tab PO SCH (09:32)
[2016-10-14] MEDS: Memantine 10 MG Tab PO SCH (09:32)
[2016-10-14] MEDS: Aspirin 81 MG Tab.EC PO SCH (09:32)
[2016-10-14] MEDS ORDERED: Heparin Sodium 5,000 Units/ML Vial SUBCUT SCH (14:00)
[2016-10-14 18:29] VITALS: BP 148/88
--- NOTE | 2016-10-21 01:56 | DISCH ---
DISCHARGE DIAGNOSES: 1. Dizziness and nausea, resolved. 2. Hyponatremia, corrected. 3. Bilateral TMJ pain. 4. Orthostatic blood pressure, resolved. 5. Cerebrovascular disease. 6. Remainder of past medical history as dictated in the admission H and P. BRIEF HISTORY OF PRESENT ILLNESS: Mrs. العراقي is an 81-year-old lady who presented to the Emergency Department complaining of the room spinning and feeling dizzy with associated nausea for the last 2 weeks. She had not been able to eat and on presentation she was somewhat dehydrated. She also was found to have orthostatic hypotension. All of these symptoms stem from bilateral jaw/TMJ pain for which she had seen Dr. Navarrete. He had placed her on high-dose steroids. A CT scan of the head was done which had showed bilateral microvascular changes, but no other acute findings. No imaging studies have been done of the TMJ joints (MRI is preferred imaging study). In the ER, she was also found to be hyponatremic with a sodium of 121 and was admitted for further management. PERTINENT LABS AND X-RAYS: CBC on the day of admission was unremarkable. Hemoglobin and hematocrit were 11.7 and 33.6, white count and platelets were unremarkable. Chemistry showed a sodium of 121. Remainder of the electrolytes were unremarkable. BUN and creatinine were 20 and 1.0 with a GFR of 53 which improved to greater than 60 on repeat exam. Sodium was 134 at the time of discharge. Blood sugars were unremarkable. LFTs were within normal limits. TSH was normal at 0.56. Urinalysis was unremarkable. Urine toxicology was positive only for benzodiazepines. A 12-lead EKG was performed in the ER and showed a sinus bradycardia with a ventricular rate of 58. There were normal axis and intervals. No acute ST-T wave changes. HOSPITAL COURSE: She was admitted for further evaluation and management. In the Emergency Department, she had been given IV fluids, as well as 20 mg of IV dexamethasone and 5 mg of IV diazepam. These medications were given because of the possibility of bilateral TMJ pain. She continued on IV fluids. Her usual medications were continued. She was already on Plavix and aspirin, but subcutaneous heparin was added for VTE prophylaxis. She was initially started on a clear-liquid diet and advanced to a mechanical soft. She actually did quite well and improved quickly. There was consideration given to whether or not she would benefit from time in swing bed, but she was seen by Physical and Occupational Therapy, who felt that she was doing quite well and feel that she could be safely discharged home. She is ambulatory without any problems. She does have a walker at home if she needs it. Review of her clinical data showed that she was taking in adequate fluids. She was voiding and moving her bowels. She was tolerating her diet and appetite slowly improved. Vital signs remained stable and she was afebrile. PHYSICAL EXAMINATION: Vital Signs: On the day of discharge, blood pressure was 117/57, pulse 62, respiratory rate 20 and unlabored, oxygen saturation 96% on room air. She is afebrile. HEENT: Unremarkable. She is moving her mouth quite well including opening her mouth and moving the jaw without any apparent discomfort. She was talking in complete sentences. Her speech was clear. Chest: Showed clear bilateral breath sounds. Heart: Showed regular rate and rhythm. Abdomen: Benign. Extremities: Showed the calves to be soft and nontender. Neurologic: She was intact. DISCHARGE MEDICATIONS: 1. Rosuvastatin 10 mg daily. 2. Plavix 75 mg daily. 3. Cymbalta 30 mg daily. 4. Zetia 10 mg daily. 5. Celebrex 200 mg daily. 6. Aspirin EC 81 mg daily. 7. Levothyroxine daily. 8. Hydrochlorothiazide 25 mg daily. 9. Oxybutynin 5 mg daily. 10.Namenda 5 mg daily. 11.Propranolol 60 mg twice a day. 12.Namenda again 10 mg at bedtime. PLAN: She will remain on 60 mg of prednisone. We did not start a taper as she is scheduled to see Dr. Navarrete on October 16 at 11:00 a.m. We will defer to Dr. Navarrete to start a steroid taper. She should continue her usual diet as tolerated. She was no longer orthostatic, but she was instructed to change positions slowly and carefully. She was given take-home literature on dizziness/vertigo and TMJ syndrome. During the admission, we asked her if she had spoken with her dentist. She had not. We called her dentist, Dr. Diaz. We also spoke to Dr. Regan. We asked if they had any other suggestions regarding this. They agreed with the anti- inflammatory use with the steroids. They did talk about adding a low-dose short course of an NSAID. However, she is on Plavix, aspirin, and Celebrex and it would seem rather risky to add another anti-inflammatory to increase her risk of GI bleeding. Physical and Occupational Therapy did not feel she needed extra inpatient, but she certainly can follow up with them as an outpatient. The preferred imaging study to look at the TMJ joints would be an MRI, if the problem does not improve with conservative care. CONDITION AT THE TIME OF DISCHARGE: Improved and stable. CODE STATUS DURING THIS ADMISSION: Full code. She does have follow up with Dr. Navarrete as mentioned above on October 16 at 11:00 a.m. [facility] /[id number] MTDTika
== END 2016-10-14 17:10 | disposition home health service (06) | DRG 312 ==
LOC: DL.ED 16:17 → DL.MS 19:15 → UNDOADMIN 19:15 → DL.MS 21:09 → UNDODISIN 10-14 17:10
PROVIDERS: ADMIT Internal Medicine Nephrology; ATTEND Internal Medicine Nephrology
DX: I95.1 Orthostatic hypotension (principal); E87.1 Hypo-osmolality and hyponatremia; R11.0 Nausea; M26.623 Arthralgia of bilateral temporomandibular joint; E86.0 Dehydration; R42 Dizziness and giddiness; E78.00 Pure hypercholesterolemia, unspecified; R53.1 Weakness; I25.10 Atherosclerotic heart disease of native coronary artery without angina pectoris; I10 Essential (primary) hypertension; Z86.73 Personal history of transient ischemic attack (TIA), and cerebral infarction without residual deficits; F03.90 Unspecified dementia, unspecified severity, without behavioral disturbance, psychotic disturbance, mood disturbance, and anxiety; Z79.82 Long term (current) use of aspirin; Z79.02 Long term (current) use of antithrombotics/antiplatelets; Z79.899 Other long term (current) drug therapy; Z88.0 Allergy status to penicillin
CPT/HCPCS: 36415; 80053; 80305; 81001; 83735; 84443; 85025; 93005; 93010; 96361; 96374; 96375; 99284; 99285; J1100; J3360; J7030; J7050; 80048; 97162-GP; 97165-GO; A9270-GY; J1644

== ENCOUNTER 2018-08-26 21:47 | Emergency (ER) | payer MEDICARE, OTHER ==
[2018-08-26 21:57] VITALS: BP 141/78
--- NOTE | 2018-08-26 22:01 | EDM.PDOC ---
ED HPI GENERAL MEDICAL PROBLEM - General Chief Complaint: Abdominal Pain Stated Complaint: HAS A COMPAXTION? Time Seen by Provider: 08/26/18 21:57 Source of Information: Reports: Patient, Family History Limitations: Reports: No Limitations - History of Present Illness INITIAL COMMENTS - FREE TEXT/NARRATIVE: 4th time over 6 week period of constipation. usually fleets help but not this time. did see PMD Thursday but was too bust to tell him since had family gathering. not getting better feels worse tonight. not taking miralax. only eat small amounts - Related Data Allergies Allergy/AdvReac Type Severity Reaction Status Date / Time Penicillins Allergy Cannot Verified 08/26/18 21:58 Remember Home Meds: Home Meds Aspirin [Halfprin] 81 mg PO DAILY 05/19/15 [History] Celecoxib 200 mg PO DAILY 05/19/15 [History] Ezetimibe [Zetia] 10 mg PO DAILY 05/19/15 [History] Hydrochlorothiazide 25 mg PO DAILY 05/19/15 [History] Levothyroxine [Synthroid] 1 tab PO DAILY 05/19/15 [History] Memantine HCl [Namenda] 5 mg PO QAM 05/19/15 [History] Oxybutynin 5 mg PO DAILY 05/19/15 [History] Propranolol [Inderal LA] 60 mg PO BID 05/19/15 [History] Rosuvastatin [Crestor] 10 mg PO DAILY 05/19/15 [History] Clopidogrel [Plavix] 75 mg PO DAILY 10/10/16 [History] DULoxetine [Cymbalta] 30 mg PO DAILY 10/10/16 [History] Prednisone [IJD: predniSONE] 60 mg PO DAILY 10/10/16 [History] Memantine [Namenda] 10 mg PO BEDTIME tablet 10/14/16 [Rx] Past Medical History HEENT History: Reports: Impaired Vision Cardiovascular History: Reports: CAD, High Cholesterol, Hypertension Genitourinary History: Reports: UTI, Recurrent Neurological History: Reports: TIA Psychiatric History: Reports: Dementia - Past Surgical History HEENT Surgical History: Reports: Cataract Surgery, Tonsillectomy Social & Family History - Family History Family Medical History: Noncontributory - Caffeine Use Caffeine Use: Reports: None ED ROS GENERAL - Review of Systems Review Of Systems: ROS reveals no pertinent complaints other than HPI. ED EXAM, GI/ABD - Physical Exam Exam: See Below Exam Limited By: No Limitations General Appearance: Alert, WD/WN, Mild Distress, Other (discomfort) Ears: Hearing Grossly Normal Throat/Mouth: Normal Voice, No Airway Compromise Head: Atraumatic Neck: Non-Tender, Full Range of Motion Respiratory/Chest: No Respiratory Distress Cardiovascular: Regular Rate, Rhythm GI/Abdominal Exam: Soft, Non-Tender, Other (periumb discomfort, HYPER BS. ). No : Distended, Guarding, Rigid, Rebound Neurological: Alert, Oriented, Normal Cognition, Normal Gait, No Motor/Sensory Deficits Psychiatric: Normal Affect, Normal Mood Skin Exam: Warm, Dry, Normal Color Lymphatic: No Adenopathy Course - Vital Signs Last Recorded V/S: Last Vital Signs Temp 36.3 C 08/26/18 21:53 Pulse 83 08/26/18 21:53 Resp 18 08/26/18 21:53 BP 141/78 H 08/26/18 21:53 Pulse Ox 98 08/26/18 21:53 - Orders/Labs/Meds Orders: Active Orders 24 hr Category Date Time Status Enema [RC] ASDIRECTED Care 08/26/18 22:15 Active KUB [Abdomen 1V Flat] [CR] Urgent Exams 08/26/18 21:56 Taken - Re-Assessments/Exams Free Text/Narrative Re-Assessment/Exam: 08/26/18 23:42 enema till results pt wants to go home now. Departure - Departure Time of Disposition: 23:47 Disposition: Home, Self-Care 01 Condition: Good Clinical Impression: Constipation by delayed colonic transit - Discharge Information Instructions: Constipation, Adult, [id number] Forms: ED Department Discharge Additional Instructions: 1) avoid solid foods next 3 days 2) have liquids and soft foods 3) try prune juice 4) try miralax 5) follow up with family doctor - My Orders Last 24 Hours: My Active Orders 08/26/18 21:56 KUB [Abdomen 1V Flat] [CR] Urgent 08/26/18 22:15 Enema [RC] ASDIRECTED - Assessment/Plan Last 24 Hours: My Active Orders 08/26/18 21:56 KUB [Abdomen 1V Flat] [CR] Urgent 08/26/18 22:15 Enema [RC] ASDIRECTED
== END 2018-08-27 | disposition home or self-care (01) ==
LOC: DL.ED 21:47
DX: K59.01 Slow transit constipation (principal); I25.10 Atherosclerotic heart disease of native coronary artery without angina pectoris; E78.00 Pure hypercholesterolemia, unspecified; I10 Essential (primary) hypertension; Z86.73 Personal history of transient ischemic attack (TIA), and cerebral infarction without residual deficits; Z88.0 Allergy status to penicillin; Z79.82 Long term (current) use of aspirin; Z79.899 Other long term (current) drug therapy
CPT/HCPCS: 74018; 99284-25

== ENCOUNTER 2020-01-07 19:08 | Emergency (ER) | payer MEDICARE, OTHER ==
[2020-01-07 19:56] VITALS: BP 111/67; PULSE 72
--- NOTE | 2020-01-07 20:36 | CR ---
PROCEDURE INFORMATION: Exam: XR Right Forearm Exam date and time: 01/07/2020 8:09 PM Age: 84 years old Clinical indication: Pain; Lower or forearm; Right; Additional info: Pain, swelling TECHNIQUE: Imaging protocol: XR Right forearm. Views: 2 views. COMPARISON: No relevant prior studies available. FINDINGS: Bones/joints: Normal. Soft tissues: Normal. IMPRESSION: No acute findings.
--- NOTE | 2020-01-07 20:52 | EDM.PDOC ---
<Alexus Gilbert - Last Filed: 01/07/20 21:33> ED HPI GENERAL MEDICAL PROBLEM - General Chief Complaint: Lower Extremity Injury/Pain Stated Complaint: FELL HURT ARM HIT HEAD AND SLIGHTL BRUISED FACE Time Seen by Provider: 01/07/20 20:30 Source of Information: Reports: Patient, Family, RN, RN Notes Reviewed History Limitations: Reports: Other (hx dementia, unable to complete sentences due to impaired train of thought) - History of Present Illness INITIAL COMMENTS - FREE TEXT/NARRATIVE: pt brought to ED by daughter. pt lives in home with . hx of dementia with noted expressive aphasia. pt asks for daughter to answer questions. daughter states a week ago today (12/30) pt tripped over step stool in kitchen and hit her right forehead on the door frame and caught herself with her right forearm. reports deformity/swelling to right forearm with significant bruising. states the area of deformity is where she had bled quite a bit from a skin tear. pt reports pain to right forearm and upper arm. daughter states pt will forget that she injured her arm and use it without complaints, but when she remembers she hurt it,is very guarded with use. denies LOC with hitting head, denies nausea/vomiting, fever, chills, denies change in baseline cognition. daughter reports a second fall occurring 3 days ago during the night. states her dad told her that he heard a noise from the bathroom and found her on the floor, denies injury or LOC. Onset: Other Onset Date: 12/31/19 Location: Reports: Upper Extremity, Right Quality: Reports: Ache Severity: Moderate Worsens with: Reports: Movement Right Lower Arm Pain Score (Numeric/FACES): 3 - Related Data Allergies Allergy/AdvReac Type Severity Reaction Status Date / Time Penicillins Allergy Cannot Verified 01/07/20 19:51 Remember Home Meds: Home Meds Aspirin [Halfprin] 81 mg PO DAILY 05/19/15 [History] Celecoxib 200 mg PO DAILY 05/19/15 [History] Ezetimibe [Zetia] 10 mg PO DAILY 05/19/15 [History] Hydrochlorothiazide 25 mg PO DAILY 05/19/15 [History] Levothyroxine [Synthroid] 1 tab PO DAILY 05/19/15 [History] Memantine HCl [Namenda] 5 mg PO QAM 05/19/15 [History] Oxybutynin 5 mg PO DAILY 05/19/15 [History] Propranolol [Inderal LA] 60 mg PO BID 05/19/15 [History] Rosuvastatin [Crestor] 10 mg PO DAILY 05/19/15 [History] Clopidogrel [Plavix] 75 mg PO DAILY 10/10/16 [History] DULoxetine [Cymbalta] 30 mg PO DAILY 10/10/16 [History] Prednisone [IJD: predniSONE] 60 mg PO DAILY 10/10/16 [History] Memantine [Namenda] 10 mg PO BEDTIME tablet 10/14/16 [Rx] Past Medical History HEENT History: Reports: Impaired Vision Cardiovascular History: Reports: CAD, High Cholesterol, Hypertension Respiratory History: Reports: None Gastrointestinal History: Reports: None Genitourinary History: Reports: UTI, Recurrent [employer] History: Reports: None Musculoskeletal History: Reports: None Neurological History: Reports: CVA, TIA Psychiatric History: Reports: Dementia Endocrine/Metabolic History: Reports: None Hematologic History: Reports: None Immunologic History: Reports: None Oncologic (Cancer) History: Reports: None Dermatologic History: Reports: None - Past Surgical History Head Surgeries/Procedures: Reports: None HEENT Surgical History: Reports: Cataract Surgery, Tonsillectomy Social & Family History - Family History Family Medical History: Noncontributory - Tobacco Use Tobacco Use Status *Q: Never Tobacco User - Caffeine Use Caffeine Use: Reports: None - Recreational Drug Use Recreational Drug Use: No Review of Systems - Review of Systems Review Of Systems: See Below Constitutional: Reports: No Symptoms Eyes: Reports: No Symptoms Ears: Reports: No Symptoms Nose: Reports: No Symptoms Mouth/Throat: Reports: No Symptoms Respiratory: Reports: No Symptoms Cardiovascular: Reports: No Symptoms GI/Abdominal: Reports: No Symptoms Genitourinary: Reports: No Symptoms Musculoskeletal: Reports: No Symptoms Skin: Reports: No Symptoms Neurological: Reports: Other (baseline cogntive funcitoning, hx dementia) Psychiatric: Reports: No Symptoms ED EXAM, GENERAL - Physical Exam Exam: See Below Exam Limited By: No Limitations General Appearance: Alert, No Apparent Distress Eye Exam: Bilateral Eye: EOMI, PERRL (3+) Ears: Normal External Exam, Hearing Grossly Normal Nose: Normal Inspection, No Blood Throat/Mouth: Normal Inspection, Normal Voice Head: Other (old bruising noted to right eyebrow/religion/forehead, bruising green/fading) Respiratory/Chest: No Respiratory Distress, Lungs Clear, Normal Breath Sounds, No Accessory Muscle Use, Chest Non-Tender Cardiovascular: Normal Peripheral Pulses, Regular Rate, Rhythm, No Edema, No Gallop, No JVD, No Murmur, No Rub GI/Abdominal: Normal Bowel Sounds, Soft, Non-Tender, No Organomegaly, No Distention, No Abnormal Bruit, No Mass (Female) Exam: Deferred Rectal (Female) Exam: Deferred Back Exam: Normal Inspection, Full Range of Motion, NT Extremities: Normal Inspection, Normal Range of Motion, Normal Capillary Refill, Other (right arm with firm area of swelling to forearm and additional area on upper arm just proximal to elbow. dark purple/green bruising noted to right forearm/upper arm. tenderness noted to areas of firm swelling. denies tnederness on palpation of shoulder joint.). No: Non-Tender Neurological: Alert, Other (underlying dementia) Psychiatric: Normal Affect, Normal Mood Skin Exam: Warm, Dry, Intact, Normal Color, No Rash, Other (bruising to right arm, right forehead) Departure - Departure Time of Disposition: 21:33 Disposition: Home, Self-Care 01 Condition: Fair Clinical Impression: Hematoma Dementia Qualifiers: Dementia type: unspecified type Dementia behavioral disturbance: without behavioral disturbance Qualified Code(s): F03.90 - Unspecified dementia without behavioral disturbance Fall at home Qualifiers: Encounter type: initial encounter Qualified Code(s): W19.XXXA - Unspecified fall, initial encounter Contusion Qualifiers: Encounter type: initial encounter Contusion area: forearm Laterality: right Qualified Code(s): S50.11XA - Contusion of right forearm, initial encounter - Discharge Information *PRESCRIPTION DRUG MONITORING PROGRAM REVIEWED*: Not Applicable *COPY OF PRESCRIPTION DRUG MONITORING REPORT IN PATIENT MARIANA: Not Applicable Instructions: Contusion, [id number] Forms: ED Department Discharge Additional Instructions: Follow-up with PCP for home evaluation regarding falls. Return to ER if any change or worsening in condition. Sepsis Event Note (ED) - Evaluation Sepsis Screening Result: No Definite Risk <Vida Blackwood - Last Filed: 01/07/20 21:43> Course - Vital Signs Last Recorded V/S: Last Vital Signs Temp 98.7 F 01/07/20 19:51 Pulse 72 01/07/20 19:51 Resp 16 01/07/20 19:51 BP 111/67 01/07/20 19:51 Pulse Ox 96 01/07/20 19:51 - Orders/Labs/Meds Labs: Laboratory Tests 01/07/20 Range/Units 21:10 Urine Color Dark yellow (YELLOW) Urine Appearance Clear (CLEAR) Urine pH 5.5 (5.0-9.0) Ur Specific [place] >= 1.030 (1.005-1.030) Urine Protein Negative (NEGATIVE) Urine Glucose (UA) Negative (NEGATIVE) Urine Ketones Negative (NEGATIVE) Urine Occult Blood Negative (NEGATIVE) Urine Nitrite Negative (NEGATIVE) Urine Bilirubin Negative (NEGATIVE) Urine Urobilinogen 1.0 (0.2-1.0) mg/dL Ur Leukocyte Esterase Negative (NEGATIVE) Urine RBC Not seen /HPF Urine WBC 5-10 H (0-5/HPF) /HPF Ur Epithelial Cells Few (NOT SEEN) /HPF Amorphous Sediment Rare (NOT SEEN) /HPF Urine Bacteria Rare (0-FEW/HPF) /HPF - Radiology Interpretation Free Text/Narrative:: RIght forearm xray: PROCEDURE INFORMATION: Exam: XR Right Forearm Exam date and time: 01/07/2020 8:09 PM Age: 84 years old Clinical indication: Pain; Lower or forearm; Right; Additional info: Pain, swelling TECHNIQUE: Imaging protocol: XR Right forearm. Views: 2 views. COMPARISON: No relevant prior studies available. FINDINGS: Bones/joints: Normal. Soft tissues: Normal. IMPRESSION: No acute findings. Thank you for allowing us to participate in the care of your patient. Dictated and Authenticated by: Maximus Hayward MD 01/07/2020 8:35 PM Central Time ([place] & [place]) See rad report - Re-Assessments/Exams Free Text/Narrative Re-Assessment/Exam: 01/07/20 21:09 I personally performed or re-performed the physical examination and medical decision making. I have verified all student documentation or findings, including history, physical exam and/or medical decision making. Sepsis Event Note (ED) - Focused Exam Vital Signs: Vital Signs Temp Pulse Resp BP Pulse Ox 01/07/20 19:51 98.7 F 72 16 111/67 96
== END 2020-01-07 21:46 | disposition home or self-care (01) ==
LOC: DL.ED 19:08
DX: S50.11XA Contusion of right forearm, initial encounter (principal); S00.83XA Contusion of other part of head, initial encounter; S00.11XA Contusion of right eyelid and periocular area, initial encounter; F03.90 Unspecified dementia, unspecified severity, without behavioral disturbance, psychotic disturbance, mood disturbance, and anxiety; I10 Essential (primary) hypertension; E78.00 Pure hypercholesterolemia, unspecified; I25.10 Atherosclerotic heart disease of native coronary artery without angina pectoris; Z79.02 Long term (current) use of antithrombotics/antiplatelets; Z86.73 Personal history of transient ischemic attack (TIA), and cerebral infarction without residual deficits; Z88.0 Allergy status to penicillin; Z90.49 Acquired absence of other specified parts of digestive tract; Z79.82 Long term (current) use of aspirin; Z79.899 Other long term (current) drug therapy; W01.198A Fall on same level from slipping, tripping and stumbling with subsequent striking against other object, initial encounter
CPT/HCPCS: 73090-RT; 81001; 99283; 99285

== ENCOUNTER 2020-04-04 23:40 | Emergency (ER) | payer MEDICARE, OTHER ==
[2020-04-05 00:03] VITALS: BP 138/79; PULSE 85
--- NOTE | 2020-04-05 00:06 | EDM.PDOC ---
ED HPI GENERAL MEDICAL PROBLEM - General Chief Complaint: Abdominal Pain Stated Complaint: SHARP PAIN LOWER RIGHT SIDE, GETTING WORSE Time Seen by Provider: 04/04/20 23:50 Source of Information: Reports: Patient, Family History Limitations: Reports: No Limitations - History of Present Illness INITIAL COMMENTS - FREE TEXT/NARRATIVE: This 84 yo female patient was brought to the ED by her [id number] due to right lower quadrant abdominal pain. The patient reports her symptoms have been intermittent for the past 3 days, but got worse about 45 minutes prior to her arrival in the ED. The patient reports the pain woke her up. During the ride to the ED, the patient reported intermittent episodes of increased pain. Duration: Day(s): (3), Getting Worse, Intermittent Location: Reports: Abdomen (RLQ radiating to her right back) Quality: Reports: Ache, Sharp Severity: Moderate Improves with: Reports: None Worsens with: Reports: None Context: Reports: Other - Related Data Allergies Allergy/AdvReac Type Severity Reaction Status Date / Time Penicillins Allergy Cannot Verified 04/05/20 00:03 Remember Home Meds: Home Meds Celecoxib 200 mg PO DAILY 05/19/15 [History] Ezetimibe [Zetia] 10 mg PO DAILY 05/19/15 [History] Levothyroxine [Synthroid] 1 tab PO DAILY 05/19/15 [History] Propranolol [Inderal LA] 60 mg PO BID 05/19/15 [History] Rosuvastatin [Crestor] 10 mg PO DAILY 05/19/15 [History] Clopidogrel [Plavix] 75 mg PO DAILY 10/10/16 [History] DULoxetine [Cymbalta] 30 mg PO DAILY 10/10/16 [History] Memantine [Namenda] 10 mg PO BID 04/05/20 [History] Sennosides [Senna Lax] 8.6 mg PO DAILY 04/05/20 [History] Past Medical History HEENT History: Reports: Impaired Vision Cardiovascular History: Reports: CAD, High Cholesterol, Hypertension Respiratory History: Reports: None Gastrointestinal History: Reports: None Genitourinary History: Reports: UTI, Recurrent CREDIT CHECKER History: Reports: None Musculoskeletal History: Reports: None Neurological History: Reports: CVA, TIA Psychiatric History: Reports: Dementia Endocrine/Metabolic History: Reports: None Hematologic History: Reports: None Immunologic History: Reports: None Oncologic (Cancer) History: Reports: None Dermatologic History: Reports: None - Past Surgical History Head Surgeries/Procedures: Reports: None HEENT Surgical History: Reports: Cataract Surgery, Tonsillectomy Social & Family History - Family History Family Medical History: No Pertinent Family History - Caffeine Use Caffeine Use: Reports: None ED ROS GENERAL - Review of Systems Review Of Systems: Comprehensive ROS is negative, except as noted in HPI. ED EXAM, GI/ABD - Physical Exam Exam: See Below Exam Limited By: No Limitations General Appearance: Alert, WD/WN, Moderate Distress Eyes: Bilateral: Normal Appearance, EOMI Ears: Normal External Exam, Normal Canal, Hearing Grossly Normal, Normal TMs Nose: Normal Inspection, Normal Mucosa, No Blood Throat/Mouth: Normal Inspection, Normal Lips, Normal Teeth, Normal Gums, Normal Oropharynx, Normal Voice, No Airway Compromise Head: Atraumatic, Normocephalic Respiratory/Chest: No Respiratory Distress, Lungs Clear, Normal Breath Sounds, No Accessory Muscle Use, Chest Non-Tender Cardiovascular: Normal Peripheral Pulses, Regular Rate, Rhythm, No Edema, No Gallop, No JVD, No Murmur, No Rub GI/Abdominal Exam: Guarding (right lower quadrant), Tender (RLQ) (Female) Exam: Deferred Rectal (Female) Exam: Deferred Back Exam: Normal Inspection, Full Range of Motion, NT Extremities: Normal Inspection, Normal Range of Motion, Non-Tender, Normal Capillary Refill, No Pedal Edema Neurological: Alert, Oriented, CN II-XII Intact, Normal Gait, Normal Reflexes, No Motor/Sensory Deficits, Other (The patient has a history of dementia) Psychiatric: Normal Affect, Normal Mood Skin Exam: Warm, Dry, Intact, Normal Color, No Rash Lymphatic: No Adenopathy Course - Vital Signs Last Recorded V/S: Last Vital Signs Temp 36.5 C 04/05/20 00:01 Pulse 85 04/05/20 00:01 Resp 20 04/05/20 00:01 BP 138/79 04/05/20 00:01 Pulse Ox 96 04/05/20 00:01 - Orders/Labs/Meds Orders: Active Orders 24 hr Category Date Time Status Abdomen 2V AP Flat Upright [CR] Urgent Exams 04/05/20 01:12 Ordered CULTURE URINE [RM] Urgent Lab 04/05/20 00:48 Received Labs: Laboratory Tests 04/05/20 04/05/20 04/05/20 Range/Units 00:05 00:05 00:48 WBC 6.8 (5.0-10.0) 10^3/uL RBC 4.33 (4.2-5.4) 10^6/uL Hgb 13.0 (12.0-16.0) g/dL Hct 39.3 (37.0-47.0) % MCV 90.8 D (80-100) fL MCH 30.0 (27.0-34.0) pg MCHC 33.1 (33.0-35.0) g/dL Plt Count 164 D (150-450) 10^3/uL Neut % (Auto) 60.4 (42.2-75.2) % Lymph % (Auto) 24.6 (20.5-50.1) % [place] % (Auto) 10.2 H (2-8) % Eos % (Auto) 4.5 H (1.0-3.0) % Baso % (Auto) 0.3 (0.0-1.0) % Sodium 141 (136-145) mmol/L Potassium 3.9 (3.5-5.1) mmol/L Chloride 104 (98-107) mmol/L Carbon Dioxide 27 (21-32) mmol/L Anion Gap 13.9 H (7-13) mEq/L BUN 31 H (7-18) mg/dL Creatinine 1.22 H (0.55-1.02) mg/dL Est Cr Clr Drug Dosing 23.78 mL/min Estimated GFR (MDRD) 42 BUN/Creatinine Ratio 25.4 (No establ ref range) Glucose 113 H (74-99) mg/dL Calcium 9.6 (8.5-10.1) mg/dL Total Bilirubin 1.7 H (0.2-1.0) mg/dL AST 23 (15-37) U/L ALT 29 (14-59) U/L Alkaline Phosphatase 108 (46-116) U/L Total Protein 7.3 (6.4-8.2) g/dL Albumin 3.5 (3.4-5.0) g/dL Globulin 3.8 Albumin/Globulin Ratio 0.9 Urine Color Yellow (YELLOW) Urine Appearance Slightly cloudy (CLEAR) Urine pH 5.5 (5.0-9.0) Ur Specific [place] >= 1.030 (1.005-1.030) Urine Protein 30 H (NEGATIVE) Urine Glucose (UA) Negative (NEGATIVE) Urine Ketones 15 H (NEGATIVE) Urine Occult Blood Negative (NEGATIVE) Urine Nitrite Negative (NEGATIVE) Urine Bilirubin Small H (NEGATIVE) Urine Urobilinogen 0.2 (0.2-1.0) mg/dL Ur Leukocyte Esterase Trace H (NEGATIVE) Urine RBC 0-5 /HPF Urine WBC 10-20 H (0-5/HPF) /HPF Ur Epithelial Cells Few (NOT SEEN) /HPF Calcium Oxalate Crystal Few H (NOT SEEN) /HPF Amorphous Sediment Moderate H (NOT SEEN) /HPF Urine Bacteria Few (0-FEW/HPF) /HPF Urine Mucus Few H (NOT SEEN) /LPF Departure - Departure Time of Disposition: :53 Disposition: Home, Self-Care 01 Condition: Fair Clinical Impression: Constipation Qualifiers: Constipation type: unspecified constipation type Qualified Code(s): K59.00 - Constipation, unspecified Abdominal pain Qualifiers: Abdominal location: right lower quadrant Qualified Code(s): R10.31 - Right lower quadrant pain - Discharge Information *PRESCRIPTION DRUG MONITORING PROGRAM REVIEWED*: Not Applicable *COPY OF PRESCRIPTION DRUG MONITORING REPORT IN PATIENT MARIANA: Not Applicable Instructions: Constipation, Adult, [id number] Forms: ED Department Discharge Care Plan Goals: The patient and family were advised of the examination, lab and x-ray results during the visit. The patient was encouraged to increase her oral fluid intake. If the patient has any additional symptoms or concerns, the patient should either return to the emergency department or visit her primary care facility. Sepsis Event Note (ED) - Focused Exam Vital Signs: Vital Signs Temp Pulse Resp BP Pulse Ox 04/05/20 00:01 36.5 C 85 20 138/79 96 - My Orders Last 24 Hours: My Active Orders 04/05/20 00:48 CULTURE URINE [RM] Urgent 04/05/20 01:12 Abdomen 2V AP Flat Upright [CR] Urgent - Assessment/Plan Last 24 Hours: My Active Orders 04/05/20 00:48 CULTURE URINE [RM] Urgent 04/05/20 01:12 Abdomen 2V AP Flat Upright [CR] Urgent
[2020-04-05 00:31] LABS: ANION GAP 13.9 mEq/L (7-13)
--- NOTE | 2020-04-05 02:05 | CR ---
PROCEDURE INFORMATION: Exam: XR Abdomen, 2 Views Exam date and time: 04/05/2020 1:27 AM Age: 84 years old Clinical indication: Abdominal pain; Generalized TECHNIQUE: Imaging protocol: XR of the abdomen. Views: 2 Views. COMPARISON: CR Abdomen 1V Flat 08/26/2018 9:59 PM FINDINGS: Heart/Mediastinum: Hiatal hernia. Gastrointestinal tract: Air-fluid levels within the colon on the upright view. Findings suggest ileus. No bowel dilatation. Intraperitoneal space: Normal. No free air. Bones/joints: Unremarkable for age. IMPRESSION: Air-fluid levels within the colon suggest mild ileus.
== END 2020-04-05 02:00 | disposition home or self-care (01) ==
LOC: DL.ED 23:40
DX: K59.00 Constipation, unspecified (principal); I25.10 Atherosclerotic heart disease of native coronary artery without angina pectoris; E78.00 Pure hypercholesterolemia, unspecified; I10 Essential (primary) hypertension; F03.90 Unspecified dementia, unspecified severity, without behavioral disturbance, psychotic disturbance, mood disturbance, and anxiety; Z79.02 Long term (current) use of antithrombotics/antiplatelets; Z79.899 Other long term (current) drug therapy; Z86.73 Personal history of transient ischemic attack (TIA), and cerebral infarction without residual deficits; Z88.0 Allergy status to penicillin
CPT/HCPCS: 36415; 74019; 80053; 81001; 85025; 87086; 99282; 99284-25

== ENCOUNTER 2020-04-06 19:53 | Emergency (ER) | payer MEDICARE, OTHER ==
[2020-04-06 21:01] LABS: ANION GAP 11.9 mEq/L (7-13)
--- NOTE | 2020-04-06 21:48 | CT ---
PROCEDURE INFORMATION: Exam: CT Abdomen And Pelvis Without Contrast Exam date and time: 04/06/2020 9:02 PM Age: 84 years old Clinical indication: Other: Low ab pain--no trauma; Additional info: Abdominal, low back pain TECHNIQUE: Imaging protocol: Computed tomography of the abdomen and pelvis without contrast. Total images: 411 Radiation optimization: All CT scans at this facility use at least one of these dose optimization techniques: automated exposure control; mA and/or kV adjustment per patient size (includes targeted exams where dose is matched to clinical indication); or iterative reconstruction. COMPARISON: CT ABDOMEN/PELVIS 09/13/2012 11:14 AM FINDINGS: Limitations: The lack of IV contrast limits evaluation of the abdominal/pelvic organs. Motion artifact degrades imaging. Lungs: Dependent atelectasis at the lung bases. There are 2 or 3 tiny pulmonary nodules at the right lung base largest 3 mm. Mediastinal space: Small to moderate hiatal hernia. Liver: Similar size of low-density lesion right lobe of liver near the diaphragm probably a cyst. Additional hypodense lesion right lobe of liver also appears grossly unchanged. Gallbladder and bile ducts: Gallstone in the region of the neck of the gallbladder. The gallbladder is mildly distended. Pancreas: Normal. No ductal dilation. Spleen: Normal. No splenomegaly. Adrenal glands: Normal. No mass. Kidneys and ureters: Tiny 5 mm hyperdense lesion anterior left kidney may represent a hyperdense cyst. Stomach and bowel: The rectum is distended with stool, distended up to 5.7 cm. Equivocal minimal wall thickening of the rectum with some minimal perirectal fat stranding. Appendix: No evidence of appendicitis. Intraperitoneal space: Unremarkable. No free air. No significant fluid collection. Vasculature: Moderate atherosclerotic changes of the abdominal aorta and branches. Lymph nodes: Unremarkable. No enlarged lymph nodes. Urinary bladder: Unremarkable as visualized. Reproductive: Unremarkable as visualized. Bones/joints: Degenerative changes lumbosacral spine, most pronounced at L2-L3. Degenerative changes of the hips right greater than left. Soft tissues: Unremarkable. IMPRESSION: 1. Gallstone in the region of the neck of the gallbladder. Gallbladder is mildly distended. Correlate for gallbladder symptomatology. Consider right upper quadrant ultrasound. 2. Stool distended rectum in addition to some minimal rectal wall thickening. Correlate for any evidence of underlying colitis/proctitis. 3. See above for multiple other details. 4. 2 or 3 tiny pulmonary nodules at the right lung base, largest 3 mm. COMMENTS: Consistent with the [employer]'s Incidental Findings Committee white paper (J Am Yasmine Radiol 2018): Any incidental renal lesion less than 1 cm or classified as too small to characterize, or any incidental cystic renal lesion characterized as simple-appearing, is likely benign. No follow-up imaging is recommended for these lesions per consensus recommendations based on imaging criteria.
--- NOTE | 2020-04-06 21:55 | CT ---
PROCEDURE INFORMATION: Exam: CT Lumbar Spine Without Contrast Exam date and time: 04/06/2020 9:02 PM Age: 84 years old Clinical indication: Other: Pain-no trauma; Additional info: Abdominal, low back pain TECHNIQUE: Imaging protocol: Computed tomography images of the lumbar spine without contrast. Total images: 231 Radiation optimization: All CT scans at this facility use at least one of these dose optimization techniques: automated exposure control; mA and/or kV adjustment per patient size (includes targeted exams where dose is matched to clinical indication); or iterative reconstruction. COMPARISON: No relevant prior studies available. FINDINGS: Vertebrae: See "Discs/Spinal canal/Neural foramina" finding. Discs/Spinal canal/Neural foramina: Intervertebral disc space narrowing with subchondral sclerosis and spurring most pronounced at the L2-L3 level. There is diffuse disc bulge with no definite spinal stenosis. There may be minimal encroachment on the left neural foramen at this level. At the L3-L4 level there is diffuse disc bulge. Associated facet degenerative changes. No evidence for spinal stenosis. There is diffuse disc bulge at L4-L5. No evidence for spinal stenosis. Liver: Few hepatic hypodensities likely cysts. Gallbladder and bile ducts: Gallstone. Gallbladder mildly distended. Soft tissues: Unremarkable. IMPRESSION: 1. Moderate lumbar spondylosis as above. Multilevel disc bulging with no evidence for spinal stenosis. 2. No acute fracture.
--- NOTE | 2020-04-06 23:03 | EDM.PDOC ---
ED HPI GENERAL MEDICAL PROBLEM - General Chief Complaint: Abdominal Pain Stated Complaint: SEVERE ABDOMINAL PAIN Time Seen by Provider: 04/06/20 20:05 Source of Information: Reports: Patient History Limitations: Reports: No Limitations - History of Present Illness INITIAL COMMENTS - FREE TEXT/NARRATIVE: ED with c/o abdominal pain, similar to Elenita restrepo. Daughter, primary care coordinator reports only small stooll today. Difficulty getting patient to drink water, Took 2 senna tabs today. Has used mirlax and MOM in past. Pain resolved on Thursday after large BM. Hx dementia. Lives at home with spouse and daughter. No fever or chills, No vomiting. - Related Data Allergies Allergy/AdvReac Type Severity Reaction Status Date / Time Penicillins Allergy Cannot Verified 04/05/20 00:03 Remember Home Meds: Home Meds Celecoxib 200 mg PO DAILY 05/19/15 [History] Ezetimibe [Zetia] 10 mg PO DAILY 05/19/15 [History] Levothyroxine [Synthroid] 50 mcg PO DAILY 05/19/15 [History] Propranolol [Inderal LA] 60 mg PO BID 05/19/15 [History] Rosuvastatin [Crestor] 10 mg PO BEDTIME 05/19/15 [History] Clopidogrel [Plavix] 75 mg PO DAILY 10/10/16 [History] DULoxetine [Cymbalta] 30 mg PO DAILY 10/10/16 [History] Memantine [Namenda] 10 mg PO BID 04/05/20 [History] Sennosides [Senna Lax] 8.6 mg PO DAILY 04/05/20 [History] Past Medical History HEENT History: Reports: Impaired Vision Cardiovascular History: Reports: CAD, High Cholesterol, Hypertension Respiratory History: Reports: None Gastrointestinal History: Reports: Chronic Constipation Genitourinary History: Reports: UTI, Recurrent [employer] History: Reports: None Musculoskeletal History: Reports: None Neurological History: Reports: Alzheimers Disease, CVA, TIA Psychiatric History: Reports: Dementia Endocrine/Metabolic History: Reports: None Hematologic History: Reports: None Immunologic History: Reports: None Oncologic (Cancer) History: Reports: None Dermatologic History: Reports: None - Past Surgical History Head Surgeries/Procedures: Reports: None HEENT Surgical History: Reports: Cataract Surgery, Tonsillectomy Social & Family History - Family History Family Medical History: No Pertinent Family History - Tobacco Use Tobacco Use Status *Q: Never Tobacco User Second Hand Smoke Exposure: No - Caffeine Use Caffeine Use: Reports: None - Recreational Drug Use Recreational Drug Use: No ED ROS GENERAL - Review of Systems Review Of Systems: Comprehensive ROS is negative, except as noted in HPI. ED EXAM, GI/ABD - Physical Exam Exam: See Below Exam Limited By: No Limitations General Appearance: Alert, Anxious, Mild Distress Ears: Normal External Exam, Hearing Grossly Normal Head: Atraumatic, Normocephalic Neck: Normal Inspection Respiratory/Chest: No Respiratory Distress, Lungs Clear, Normal Breath Sounds Cardiovascular: Regular Rate, Rhythm GI/Abdominal Exam: Soft, Tender (lower), Abnormal Bowel Sounds (hyperactive). No: Distended, Guarding (mid loweer) Back Exam: Full Range of Motion Extremities: Normal Inspection Neurological: Alert, Inattentive. No: Oriented (person, place), Normal Cognition (short term memory loss, repetetive questions, ) Psychiatric: Anxious Skin Exam: Warm, Dry, Intact, Normal Color Course - Vital Signs Last Recorded V/S: Last Vital Signs Temp 98.0 F 04/07/20 01:05 Pulse 80 04/07/20 01:05 Resp 24 H 04/07/20 01:05 BP 140/65 04/07/20 01:05 Pulse Ox 97 04/07/20 01:05 - Orders/Labs/Meds Orders: Active Orders 24 hr Category Date Time Status CULTURE BLOOD [BC] Stat Lab 04/06/20 20:40 Received Labs: Laboratory Tests 04/06/20 04/06/20 04/06/20 Range/Units 20:30 20:40 20:40 WBC 8.4 (5.0-10.0) 10^3/uL RBC 4.87 (4.2-5.4) 10^6/uL Hgb 14.4 (12.0-16.0) g/dL Hct 43.6 (37.0-47.0) % MCV 89.5 (80-100) fL MCH 29.6 (27.0-34.0) pg MCHC 33.0 (33.0-35.0) g/dL Plt Count 197 (150-450) 10^3/uL Neut % (Auto) 63.0 (42.2-75.2) % Lymph % (Auto) 23.5 (20.5-50.1) % [place] % (Auto) 8.6 H (2-8) % Eos % (Auto) 4.7 H (1.0-3.0) % Baso % (Auto) 0.2 (0.0-1.0) % Sodium 140 (136-145) mmol/L Potassium 3.9 (3.5-5.1) mmol/L Chloride 104 (98-107) mmol/L Carbon Dioxide 28 (21-32) mmol/L Anion Gap 11.9 (7-13) mEq/L BUN 29 H (7-18) mg/dL Creatinine 1.14 H (0.55-1.02) mg/dL Est Cr Clr Drug Dosing 25.44 mL/min Estimated GFR (MDRD) 45 BUN/Creatinine Ratio 25.4 (No establ ref range) Glucose 95 (74-99) mg/dL Lactic Acid (0.4-2.0) mmol/L Calcium 9.7 (8.5-10.1) mg/dL Total Bilirubin 2.3 H (0.2-1.0) mg/dL AST 22 (15-37) U/L ALT 27 (14-59) U/L Alkaline Phosphatase 104 (46-116) U/L Total Protein 7.9 (6.4-8.2) g/dL Albumin 4.2 (3.4-5.0) g/dL Globulin 3.7 Albumin/Globulin Ratio 1.1 Urine Color Yellow (YELLOW) Urine Appearance Clear (CLEAR) Urine pH >= 9.0 (5.0-9.0) Ur Specific [place] 1.020 (1.005-1.030) Urine Protein 30 H (NEGATIVE) Urine Glucose (UA) 100 H (NEGATIVE) Urine Ketones 15 H (NEGATIVE) Urine Occult Blood Negative (NEGATIVE) Urine Nitrite Negative (NEGATIVE) Urine Bilirubin Negative (NEGATIVE) Urine Urobilinogen 1.0 (0.2-1.0) mg/dL Ur Leukocyte Esterase Trace H (NEGATIVE) U Hyaline Cast (Auto) Cancelled Urine RBC Cancelled Urine WBC Cancelled Ur Epithelial Cells Cancelled Calcium Phosphate Cryst Cancelled Calcium Oxalate Crystal Cancelled Uric Acid Crystals Cancelled Triple Phos Crystals Cancelled Other Crystals Cancelled Amorphous Sediment Cancelled Urine Bacteria Cancelled Hyaline Casts Cancelled Granular Casts Cancelled Granular Casts (Auto) Cancelled Fine Granular Casts Cancelled Coarse Granular Casts Cancelled Urine Mucus Cancelled Urine Other Cancelled Urine Trichomonas Cancelled Urine Yeast Cancelled Urinalysis Comment Cancelled 04/06/20 Range/Units 20:40 WBC (5.0-10.0) 10^3/uL RBC (4.2-5.4) 10^6/uL Hgb (12.0-16.0) g/dL Hct (37.0-47.0) % MCV (80-100) fL MCH (27.0-34.0) pg MCHC (33.0-35.0) g/dL Plt Count (150-450) 10^3/uL Neut % (Auto) (42.2-75.2) % Lymph % (Auto) (20.5-50.1) % [place] % (Auto) (2-8) % Eos % (Auto) (1.0-3.0) % Baso % (Auto) (0.0-1.0) % Sodium (136-145) mmol/L Potassium (3.5-5.1) mmol/L Chloride (98-107) mmol/L Carbon Dioxide (21-32) mmol/L Anion Gap (7-13) mEq/L BUN (7-18) mg/dL Creatinine (0.55-1.02) mg/dL Est Cr Clr Drug Dosing mL/min Estimated GFR (MDRD) BUN/Creatinine Ratio (No establ ref range) Glucose (74-99) mg/dL Lactic Acid 1.1 (0.4-2.0) mmol/L Calcium (8.5-10.1) mg/dL Total Bilirubin (0.2-1.0) mg/dL AST (15-37) U/L ALT (14-59) U/L Alkaline Phosphatase (46-116) U/L Total Protein (6.4-8.2) g/dL Albumin (3.4-5.0) g/dL Globulin Albumin/Globulin Ratio Urine Color (YELLOW) Urine Appearance (CLEAR) Urine pH (5.0-9.0) Ur Specific [place] (1.005-1.030) Urine Protein (NEGATIVE) Urine Glucose (UA) (NEGATIVE) Urine Ketones (NEGATIVE) Urine Occult Blood (NEGATIVE) Urine Nitrite (NEGATIVE) Urine Bilirubin (NEGATIVE) Urine Urobilinogen (0.2-1.0) mg/dL Ur Leukocyte Esterase (NEGATIVE) U Hyaline Cast (Auto) Urine RBC Urine WBC Ur Epithelial Cells Calcium Phosphate Cryst Calcium Oxalate Crystal Uric Acid Crystals Triple Phos Crystals Other Crystals Amorphous Sediment Urine Bacteria Hyaline Casts Granular Casts Granular Casts (Auto) Fine Granular Casts Coarse Granular Casts Urine Mucus Urine Other Urine Trichomonas Urine Yeast Urinalysis Comment - Re-Assessments/Exams Free Text/Narrative Re-Assessment/Exam: 04/06/20 23:30 Tolerating SS enema moderate results, Reports feeling less pressure. 04/07/20 01:[address] Galeana, Recommend tx to [facility], r/t gall stone and possible need for ERCP. Dr Vargas accepting. Tx via [facility]. Patient and daughter agreeable. Clarification with family. patient is FULL CODE. Departure - Departure Time of Disposition: 01:45 Disposition: DC/Tfer to Acute Hospital 02 Condition: Good Clinical Impression: Constipation by delayed colonic transit Abdominal pain Qualifiers: Abdominal location: lower abdomen, unspecified Qualified Code(s): R10.30 - Lower abdominal pain, unspecified Dementia Qualifiers: Dementia type: unspecified type Dementia behavioral disturbance: without behavioral disturbance Qualified Code(s): F03.90 - Unspecified dementia without behavioral disturbance Gall stone Qualifiers: Cholecystitis presence: without cholecystitis Biliary obstruction: without biliary obstruction Qualified Code(s): K80.20 - Calculus of gallbladder without cholecystitis without obstruction - Discharge Information *PRESCRIPTION DRUG MONITORING PROGRAM REVIEWED*: No *COPY OF PRESCRIPTION DRUG MONITORING REPORT IN PATIENT MARIANA: No Instructions: Constipation, Adult, [id number] Forms: ED Department Discharge Sepsis Event Note (ED) - Evaluation Sepsis Screening Result: No Definite Risk - Focused Exam Vital Signs: Vital Signs Temp Pulse Resp BP BP Pulse Ox 04/07/20 01:05 98.0 F 80 24 H 140/65 97 04/07/20 00:10 97.5 F 61 24 H 147/65 H 100 04/06/20 23:00 98.0 F 60 20 141/55 H 100 04/06/20 20:01 96.8 F L 65 18 140/66 98 - My Orders Last 24 Hours: My Active Orders 04/06/20 20:40 CULTURE BLOOD [BC] Stat - Assessment/Plan Last 24 Hours: My Active Orders 04/06/20 20:40 CULTURE BLOOD [BC] Stat
[2020-04-07 01:11] VITALS: BP 140/65; PULSE 80
== END 2020-04-07 01:48 ==
LOC: DL.ED 19:53
DX: K59.01 Slow transit constipation (principal); K80.20 Calculus of gallbladder without cholecystitis without obstruction; F03.90 Unspecified dementia, unspecified severity, without behavioral disturbance, psychotic disturbance, mood disturbance, and anxiety; I25.10 Atherosclerotic heart disease of native coronary artery without angina pectoris; E78.00 Pure hypercholesterolemia, unspecified; I10 Essential (primary) hypertension; Z86.73 Personal history of transient ischemic attack (TIA), and cerebral infarction without residual deficits; Z88.0 Allergy status to penicillin; Z79.02 Long term (current) use of antithrombotics/antiplatelets; Z79.899 Other long term (current) drug therapy
CPT/HCPCS: 36415; 72131; 74176; 80053; 81003; 83605; 85025; 87040; 99284; 99285-25

== ENCOUNTER 2020-04-16 01:14 | Emergency (ER) | payer MEDICARE, OTHER ==
--- NOTE | 2020-04-16 01:49 | CR ---
PROCEDURE INFORMATION: Exam: XR Chest, 1 View Exam date and time: 04/16/2020 1:42 AM Age: 84 years old Clinical indication: Other: Chest pain TECHNIQUE: Imaging protocol: XR of the chest Views: 1 view. COMPARISON: No relevant prior studies available. FINDINGS: Lungs: No suspicious pulmonary nodules or areas of lung consolidation. Pleural spaces: Unremarkable. No pleural effusion. No pneumothorax. Heart/Mediastinum: Unremarkable. No cardiomegaly. Bones/joints: Age appropriate. IMPRESSION: No active disease of the chest.
[2020-04-16 01:57] LABS: ANION GAP 11.3 mEq/L (7-13); CHLORIDE,CL 103 mmol/L (98-107); SODIUM,NA 140 mmol/L (136-145)
--- NOTE | 2020-04-16 01:58 | EDM.PDOC ---
ED HPI GENERAL MEDICAL PROBLEM - General Chief Complaint: Cardiovascular Problem Stated Complaint: [facility] - AMBULANCE Time Seen by Provider: 04/16/20 01:45 Source of Information: Reports: Patient, Family History Limitations: Reports: Altered Mental Status (dementia) - History of Present Illness INITIAL COMMENTS - FREE TEXT/NARRATIVE: Patient is here for chest pain. Her daughter noted that she was called around midnight, by her dad, who had called 911 when the patient reported chest pain. The patient describes the pain as a sharp, shooting, pain that came then went away. She has been in the ER and hospital several times recently for abdominal pain. No previous cardiac history. She has had 2 strokes in the past as well as alzheimers dementia. The patient denies any current pain. - Related Data Allergies Allergy/AdvReac Type Severity Reaction Status Date / Time Penicillins Allergy Cannot Verified 04/16/20 02:02 Remember Home Meds: Home Meds Celecoxib 200 mg PO DAILY 05/19/15 [History] Ezetimibe [Zetia] 10 mg PO DAILY 05/19/15 [History] Levothyroxine [Synthroid] 50 mcg PO DAILY 05/19/15 [History] Propranolol [Inderal LA] 60 mg PO BID 05/19/15 [History] Rosuvastatin [Crestor] 10 mg PO BEDTIME 05/19/15 [History] Clopidogrel [Plavix] 75 mg PO DAILY 10/10/16 [History] DULoxetine [Cymbalta] 30 mg PO DAILY 10/10/16 [History] Memantine [Namenda] 10 mg PO BID 04/05/20 [History] Sennosides [Senna Lax] 8.6 mg PO DAILY 04/05/20 [History] Past Medical History HEENT History: Reports: Impaired Vision Cardiovascular History: Reports: CAD, High Cholesterol, Hypertension Respiratory History: Reports: None Gastrointestinal History: Reports: Chronic Constipation Genitourinary History: Reports: UTI, Recurrent SNOW REMOVAL/PLOWING History: Reports: None Musculoskeletal History: Reports: None Neurological History: Reports: Alzheimers Disease, CVA, TIA Psychiatric History: Reports: Dementia Endocrine/Metabolic History: Reports: None Hematologic History: Reports: None Immunologic History: Reports: None Oncologic (Cancer) History: Reports: None Dermatologic History: Reports: None - Past Surgical History Head Surgeries/Procedures: Reports: None HEENT Surgical History: Reports: Cataract Surgery, Tonsillectomy Social & Family History - Family History Family Medical History: No Pertinent Family History - Caffeine Use Caffeine Use: Reports: None ED ROS GENERAL - Review of Systems Review Of Systems: Comprehensive ROS is negative, except as noted in HPI. ED EXAM, GENERAL - Physical Exam Exam: See Below Exam Limited By: Altered Mental Status (dementia) General Appearance: Alert, No Apparent Distress Eye Exam: Bilateral Eye: Normal Inspection Ears: Normal External Exam Head: Atraumatic, Normocephalic Neck: Normal Inspection, Supple Respiratory/Chest: No Respiratory Distress, Lungs Clear, Normal Breath Sounds, No Accessory Muscle Use, Chest Non-Tender Cardiovascular: Normal Peripheral Pulses, Regular Rate, Rhythm, No Edema, No Murmur GI/Abdominal: Normal Bowel Sounds, Soft, Non-Tender, No Distention, Guarding Back Exam: Full Range of Motion Extremities: Normal Inspection, Non-Tender, No Pedal Edema Neurological: Alert, Memory Loss Recent Events, Other (expressive aphasia) Psychiatric: Normal Affect, Normal Mood Skin Exam: Warm, Dry, Intact Lymphatic: No Adenopathy Course - Vital Signs Last Recorded V/S: Last Vital Signs Temp 96.5 F L 04/16/20 04:26 Pulse 60 04/16/20 04:26 Resp 18 04/16/20 04:26 BP 118/84 04/16/20 04:26 Pulse Ox 100 04/16/20 04:26 - Orders/Labs/Meds Orders: Active Orders 24 hr Category Date Time Status EKG Documentation Completion [RC] STAT Care 04/16/20 01:14 Active CULTURE URINE [RM] Stat Lab 04/16/20 01:55 Received Labs: Laboratory Tests 04/16/20 04/16/20 04/16/20 Range/Units 01:30 01:30 01:30 WBC 5.6 (5.0-10.0) 10^3/uL RBC 3.99 L (4.2-5.4) 10^6/uL Hgb 12.1 D (12.0-16.0) g/dL Hct 37.4 (37.0-47.0) % MCV 93.7 D (80-100) fL MCH 30.3 (27.0-34.0) pg MCHC 32.4 L (33.0-35.0) g/dL Plt Count 175 (150-450) 10^3/uL Neut % (Auto) 50.8 (42.2-75.2) % Lymph % (Auto) 32.3 (20.5-50.1) % Mccracken % (Auto) 10.6 H (2-8) % Eos % (Auto) 5.9 H (1.0-3.0) % Baso % (Auto) 0.4 (0.0-1.0) % D-Dimer, Quantitative 556 H (0-400) ng/mL Sodium 140 (136-145) mmol/L Potassium 4.3 (3.5-5.1) mmol/L Chloride 103 (98-107) mmol/L Carbon Dioxide 30 (21-32) mmol/L Anion Gap 11.3 (7-13) mEq/L BUN 28 H (7-18) mg/dL Creatinine 0.99 (0.55-1.02) mg/dL Est Cr Clr Drug Dosing 29.30 mL/min Estimated GFR (MDRD) 53 BUN/Creatinine Ratio 28.3 (No establ ref range) Glucose 95 (74-99) mg/dL Calcium 9.0 (8.5-10.1) mg/dL Total Bilirubin 1.7 H (0.2-1.0) mg/dL AST 19 (15-37) U/L ALT 38 (14-59) U/L Alkaline Phosphatase 98 (46-116) U/L Troponin I < 0.017 (0.000-0.056) ng/mL Total Protein 7.0 (6.4-8.2) g/dL Albumin 3.4 (3.4-5.0) g/dL Globulin 3.6 Albumin/Globulin Ratio 0.9 Urine Color (YELLOW) Urine Appearance (CLEAR) Urine pH (5.0-9.0) Ur Specific [place] (1.005-1.030) Urine Protein (NEGATIVE) Urine Glucose (UA) (NEGATIVE) Urine Ketones (NEGATIVE) Urine Occult Blood (NEGATIVE) Urine Nitrite (NEGATIVE) Urine Bilirubin (NEGATIVE) Urine Urobilinogen (0.2-1.0) mg/dL Ur Leukocyte Esterase (NEGATIVE) Urine RBC /HPF Urine WBC (0-5/HPF) /HPF Ur Epithelial Cells (NOT SEEN) /HPF Amorphous Sediment (NOT SEEN) /HPF Urine Bacteria (0-FEW/HPF) /HPF Urine Mucus (NOT SEEN) /LPF 04/16/20 04/16/20 Range/Units 01:55 04:34 WBC (5.0-10.0) 10^3/uL RBC (4.2-5.4) 10^6/uL Hgb (12.0-16.0) g/dL Hct (37.0-47.0) % MCV (80-100) fL MCH (27.0-34.0) pg MCHC (33.0-35.0) g/dL Plt Count (150-450) 10^3/uL Neut % (Auto) (42.2-75.2) % Lymph % (Auto) (20.5-50.1) % M[place]racken % (Auto) (2-8) % Eos % (Auto) (1.0-3.0) % Baso % (Auto) (0.0-1.0) % D-Dimer, Quantitative (0-400) ng/mL Sodium (136-145) mmol/L Potassium (3.5-5.1) mmol/L Chloride (98-107) mmol/L Carbon Dioxide (21-32) mmol/L Anion Gap (7-13) mEq/L BUN (7-18) mg/dL Creatinine (0.55-1.02) mg/dL Est Cr Clr Drug Dosing mL/min Estimated GFR (MDRD) BUN/Creatinine Ratio (No establ ref range) Glucose (74-99) mg/dL Calcium (8.5-10.1) mg/dL Total Bilirubin (0.2-1.0) mg/dL AST (15-37) U/L ALT (14-59) U/L Alkaline Phosphatase (46-116) U/L Troponin I < 0.017 (0.000-0.056) ng/mL Total Protein (6.4-8.2) g/dL Albumin (3.4-5.0) g/dL Globulin Albumin/Globulin Ratio Urine Color Yellow (YELLOW) Urine Appearance Slightly cloudy (CLEAR) Urine pH 7.0 (5.0-9.0) Ur Specific [place] 1.025 (1.005-1.030) Urine Protein Negative (NEGATIVE) Urine Glucose (UA) Negative (NEGATIVE) Urine Ketones Negative (NEGATIVE) Urine Occult Blood Negative (NEGATIVE) Urine Nitrite Negative (NEGATIVE) Urine Bilirubin Negative (NEGATIVE) Urine Urobilinogen 1.0 (0.2-1.0) mg/dL Ur Leukocyte Esterase Small H (NEGATIVE) Urine RBC Not seen /HPF Urine WBC 30-40 H (0-5/HPF) /HPF Ur Epithelial Cells Moderate H (NOT SEEN) /HPF Amorphous Sediment Few (NOT SEEN) /HPF Urine Bacteria Few (0-FEW/HPF) /HPF Urine Mucus Few H (NOT SEEN) /LPF - Re-Assessments/Exams Free Text/Narrative Re-Assessment/Exam: troponin negative x2, pt still pain free. 04/16/20 05:17 Departure - Departure Time of Disposition: 05:15 Disposition: Home, Self-Care 01 Condition: Good Clinical Impression: Atypical chest pain Instructions: Nonspecific Chest Pain, Adult, [id number] Forms: ED Department Discharge Additional Instructions: Follow up with primary care provider in 2-3 days Sepsis Event Note (ED) - Evaluation Sepsis Screening Result: No Definite Risk - Focused Exam Vital Signs: Vital Signs Temp Pulse Resp BP Pulse Ox 04/16/20 04:26 96.5 F L 60 18 118/84 100 04/16/20 01:22 96 F L 79 19 148/134 H 99 - My Orders Last 24 Hours: My Active Orders 04/16/20 01:14 EKG Documentation Completion [RC] STAT 04/16/20 01:55 CULTURE URINE [RM] Stat - Assessment/Plan Last 24 Hours: My Active Orders 04/16/20 01:14 EKG Documentation Completion [RC] STAT 04/16/20 01:55 CULTURE URINE [RM] Stat
[2020-04-16 04:27] VITALS: BP 118/84; PULSE 60
== END 2020-04-16 05:25 | disposition home or self-care (01) ==
LOC: DL.ED 01:14
DX: R07.89 Other chest pain (principal); I25.10 Atherosclerotic heart disease of native coronary artery without angina pectoris; E78.00 Pure hypercholesterolemia, unspecified; I10 Essential (primary) hypertension; G30.9 Alzheimer's disease, unspecified; F02.80 Dementia in other diseases classified elsewhere, unspecified severity, without behavioral disturbance, psychotic disturbance, mood disturbance, and anxiety; Z86.73 Personal history of transient ischemic attack (TIA), and cerebral infarction without residual deficits; Z88.0 Allergy status to penicillin; Z79.02 Long term (current) use of antithrombotics/antiplatelets; Z79.899 Other long term (current) drug therapy
CPT/HCPCS: 36415; 71045; 80053; 81001; 84484; 85025; 85379; 87086; 93005; 99283; 99285-25